=== PATIENT | female | born 1975 | race Caucasian/White ===

== ENCOUNTER → 2016-03-27 | Outpatient (REF) | payer MEDICARE, MEDICAID ==
[~2016-03-27] MED LIST: /ADVA50050; /LAMO10TA; ACET500C OR; ALBU17IN INH; AMBI5TAB OR; AMITIZA PO; ASPI81TA45 OR; ATIV0.5T OR; ATIV0.5T3 PO; BACL10TA2 OR; CARA1TAB2 PO; CLAR5CHW; CLON0.5T PO; COLA100C2 OR; COMBAER6 INH; CYCL10TA3 PO; CYMB60CA3 PO; DOXY150C PO; DULO20CA; EMLA2.5C EX; EMLA2.5C EXT; FLEXERIL; FLEXERIL PO; FLON0.05; HYDR-3716 PO; HYDR25TA8 OR; IMIT100T; IMIT6INJ IJ; LAC-12LO3 TOP; LIDO5DIS36 TD; LISI10TA4 OR; LORA10TA2 PO; LORA2TA PO; MAGN250T OR; MAXA10TA17 OR; MECL12.575 PO; MIRALEX PO; MIRAPEX; NICO14DI3; OMEP10CASR PO; OMEP20TA7 OR; PERC5TAB6 PO; PERC5TAB8 OR; PHEN 25 PO; PRED20TAB PO; PROM25TA PO; PROM50TA; PROVIGIL; REGL10TA6 PO; ROBA500T; SAVE50TA PO; SIMV10TA2 OR; STOOL SOFTNER PO; TIZA4TAB OR; TIZA4TAB3 PO; TOLNAFTATE; TRAM100T; TRAM50TA2; TRAM50TA2 OR; TRAM50TA2 PO; TRAZ100T4 PO; TRAZ50TA2 PO; TYLENOL #3; VALI5TAB; VARE1TA OR; VICO5TAB OR; VIT D 2000 PO; VITA-113 SL; VITACAP31 OR; XANA1TAB2 PO; clonidine PO; emla cream TOP; fentanyl patch TOP; vitamin d3 PO
== END ==
LOC: M LAB REF 09:37
PROVIDERS: ATTEND Physician Assistant
DX: N39.0 Urinary tract infection, site not specified (principal)

== ENCOUNTER → 2016-05-25 | Outpatient (CLI) | payer MEDICARE, MEDICAID ==
--- NOTE | 2016-06-09 00:39 | ECWPNPC ---
PATIENT NAME: ALBERTO HUNT : 1975 GENDER: FEMALE VISIT DATE: 05/25/2016 DISCHARGE DATE: 05/25/16 1547 VISIT LOCKED DATE TIME: PHYSICIAN: JOCELYN ROBISON RESOURCE: JOCELYN ROBISON HISTORY OF PRESENT ILLNESS HISTORY OF PRESENT ILLNESS: PAIN THE PATIENT DESCRIBES THE PAIN... FALL RISK SCREENING: SCREENING :NO FALLS IN THE PAST YEAR TODAY'S VISIT: NOTES: FIRST VIST BACK TO CLINIC SINCE 12/22. HAS HAD NO PRESCRIBED PAIN MEDS SINCE THEN. RATES PAIN LEVEL TODAY 4-5/10 FOR BODY AND 4 FOR HEAD. DESCRIBES PAIN CONSTANT, ACHING, TENDER. IS NOTING NUMBNESS. REPORTS SX OF DIZZINESS PERIOD OF CONFUSION, DIFFICLTY READING AND FOLLOWING DIRECTIONS, HEAD HAS "STARTED GOING NUMB". IS SEEING BRIGHT FLASHES OF LIGHT AND THESE CAN LAST AN EXTENDED PERIOD. IS HAVING INTERMITTANT VOMITING WITH NO GARAY SX OCCURS ON A NEAR DAILY BASIS. FEELS FULL ALL THE TIME. . GARAY CAN FOLLOW AND IS OCCIPITAL. IS HAVING EXPLOSIVE DIARRHEA. HAS CUT BACK ON AMITIZIA (DR REAGAN).IS NOT CURRENTLY SEEING NEUROLOGY. DID CONTACT DR BINU FERNANDES IN [place] WHO IS ORDERING A NEW BRAIN SCAN AND SHE IS WAITING FOR [facility] TO SCHEDULE.. CURRENT MEDICATIONS TAKING VITAMIN D (CHOLECALCIFEROL) 4000 TABLET 1 TAB ORALLY ONCE A DAY, NOTES: 01-04-161999 TAKING AMMONIUM LACTATE 12 CREAM APPLY TO THE AFFECTED AREA ON BOTH FEET TWICE DAILY , NOTES: 3 DAYS AGO TAKING EMLA 2.5-2.5 % CREAM DIRECTED EXTERNALLY APPLY Q 4 HRS TO PAINFUL AREAS OF HEAD, NOTES: FEW DAYS AGO TAKING EXCEDRIN TENSION HEADACHE 500-65 MG TABLET ORALLY , NOTES: 01-04-16 TAKING TRAZODONE HCL 100 MG TABLET 1 TABLET AT BEDTIME ORALLY ONCE A DAY TAKING AZELASTINE HCL 0.1 % SOLUTION SPRAY ONE SPRAY IN EACH NOSTRIL TWICE A DAY TAKING OMEPRAZOLE 40 MG CAPSULE DELAYED RELEASE 1 CAPSULE ORALLY ONCE A DAY TAKING XYZAL 5 MG TABLET 1 TABLET IN THE EVENING ORALLY ONCE A DAY TAKING AMITIZA 24 MCG CAPSULE TAKE ONE CAPSULE BY MOUTH TWICE A DAY WITH FOOD TAKING TOPIRAMATE 100 MG TABLET 1 TABLET ORALLY TWICE A DAY NOT-TAKING FENTANYL 25 MCG/HR PATCH 72 HOUR 1 PATCH TO SKIN TRANSDERMAL Q72 HOURS MDD=1 NOT-TAKING PERCOCET 5-325 MG TABLET 1 TABLET NEEDED ORALLY ONCE DAILY PRN PAIN MDD=1 NOT-TAKING ZOFRAN 8 MG TABLET 1 TABLET ORALLY Q 8 HRS PRN PAIN MDD=3 NOT-TAKING ASTEPRO 137 MCG/SPRAY SOLUTION 1 PUFF IN EACH NOSTRIL NASALLY TWICE A DAY, NOTES: 12-09-15 AM NOT-TAKING COMBIVENT RESPIMAT 20-100 MCG/ACT AEROSOL 1 PUFF INHALATION BID, NOTES: 12-08-15 NOT-TAKING NICOTROL 10 MG INHALER 1 PUFF NEEDED INHALATION 16 TIME(S) A DAY NEEDED, NOTES: NONE NOT-TAKING TOPAMAX 200 MG TABLET 1 TABLET ORALLY ONCE DAILY, NOTES: 12-09-15 PM MEDICATION LIST REVIEWED AND RECONCILED WITH THE PATIENT PAST MEDICAL HISTORY ?DIABETES MELLITUS DIAGNOSED 2002 DIET CONTROLLED ADULT HODGKIN'S LYMPHOMA 1995- TREATED WITH CHEMO. (DR. MARIA) - NO LONGER FOLLOWS WITH HIM FIBROMYALGIA - PAIN CLINIC HYPERLIPIDEMIA HISTORY OF PSYCHIATRIC DISORDER AND WAS TAKING MEDICATIONS PRESCRIBED BY DR. HYDE. HOWEVER STOPPED TAKING EVERYTHING AFTER SHE HAD UNEXPLAINED SYNCOPE. ANXIETY/DEPRESSION/PTSD - FOLLOWED BY BEHAVIORAL HEALTH FOLLOWING WITH THERAPIST - SHE WAS DISCHARGED FROM BEHAVIORAL HEALTH FOR CANCELLATION OF APPOINTMENTS. CT CHEST 04/2014 - LUNG NODULE - F/U CT 03/2015 - NODULE RESOLVED. CHRONIC CONSTIPATION - FOLLWED BY DR. BRIDGES ON AMITIZA TOBACCO ABUSE ALLERGIC RHINNITIS ?COPD/ASTHMA - METHALCHOLINE CHALLENGE PENDING PONTINE HEMANGIOMA PER MRI BRAIN - REFERRED TO NEUROSURGEON (DR. MARAVILLA) GERD MIGRAINES - DR. ROBERTS ALLERGIES IODINE: ANAPHYLAXIS: ALLERGY SULFA (FOR ALLERGY USE ONLY): DIARRHEA,VOMITTING,HIVES: ALLERGY BUSPAR: MEMORY LOSS: ALLERGY LITHIUM CARBONATE: NAUSEA/VOMITING, DEHYRATION: ALLERGY MEDROXYPROGESTERONE ACETATE: HIVES: ALLERGY IBUPROFEN: NAUSEA/VOMITING,DIARRHEA: ALLERGY LYRICA: SWELLING OF FEET AND HANDS: ALLERGY FLEXERIL: INCREASED HEART RATE: SIDE EFFECTS BEE STINGS: ANAPHYLAXIS: ALLERGY LATEX (FOR ALLERGY USE ONLY): RASH: ALLERGY PEANUTS: ANAPHYLAXIS: ALLERGY NO BLOOD THINNERS: CONTRAINDICATION CHANTIX: AUDITORY HALLUCINATIONS: SIDE EFFECTS EXCEDRIN MIGRAINE: POSSIBLE BLEEDING: SIDE EFFECTS REMERON: ALLERGY SOCIAL HISTORY GENERAL: PAIN CLINIC PFS, CLERGY, PUBLIC HEALTH REFERRALS CLERGY REFERRAL NEEDED?NO WAS THE PROVIDER NOTIFIED OF ANY PERTINENT INFO?NO PFS REFERRAL NEEDED?NO PUBLIC HEALTH REFERRAL NEEDED?NO PATIENT: ____. REVIEW OF SYSTEMS CONSTITUTIONAL: ANY CHANGE IN YOUR MEDICAL CONDITION? NO . CHILLS NO . FEVER NO . INFECTION: DO YOU HAVE NEW INFECTIONS? NO . DO YOU HAVE HISTORY OF MRSA? NO . MUSCULOSKELETAL: ANY NEW PATTERNS OF PAIN OR NUMBNESS? NO . GASTROENTEROLOGY: ANY NEW CHANGE IN BOWEL CONTROL? NO . GENITOURINARY: ANY NEW CHANGE IN BLADDER CONTROL? NO . IS THERE A CHANCE YOU COULD BE ? NO . HEMATOLOGY/LYMPH: DO YOU TAKE ANY BLOOD THINNERS? (FOR EXAMPLE- COUMADIN, PLAVIX, AGGRENOX, PLATEL, PRADAXA, OR XARELTO) NO . WHEN WAS YOUR LAST DOSE? DATE: TIME: . NEUROLOGY: HAVE YOU FALLEN IN THE PAST 6 MONTHS? NO . ANY NEW EXTREMITY NUMBNESS OR WEAKNESS? NO . CARDIOLOGY: DO YOU HAVE A PACEMAKER OR DEFIBRILLATOR? NO . RESPIRATORY: HAVE YOU BEEN SICK IN THE PAST WEEK? NO . FEVER NO . FLU LIKE SYMPTOMS? NO . COUGH NO . INTEGUMENTARY: DO YOU HAVE ANY RASHES OR OPEN SORES? NO . ALLERGIC/IMMUNO: ARE YOU ALLERGIC TO SHELLFISH OR IV DYE? NO . ANY NEW ALLERGIES? NO . PSYCHIATRIC: DO YOU HAVE THOUGHTS OF HURTING YOURSELF OR SOMEONE ELSE? NO . ARE YOU ABUSED, NEGLECTED, OR IN AN UNSAFE ENVIRONMENT? NO . ENDOCRINOLOGY: ARE YOU DIABETIC? NO . OTHER: DO YOU NEED ANY PRESCRIPTIONS? NO . IF YES, PLEASE LIST: ____ . ANY NEW PROBLEMS WITH YOUR MEDICATIONS? NO . WHEN DID YOU LAST EAT? ____ . WHEN DID YOU LAST DRINK? ____ . WHAT DID YOU LAST DRINK? ____ . NAME OF PERSON DRIVING YOU HOME? ____ . DO YOU HAVE ANY OTHER QUESTIONS OR CONCERNS NO . REVIEWED BY: PROVIDER: JOCELYN ADAME . VITAL SIGNS WT 104.2 LBS, HT 60 IN, BMI 20.35 INDEX, BP 103/49 MM HG, HR 64 /MIN, RR 16 /MIN, TEMP 98.3 F, OXYGEN SAT % 100, NA INITIALS AW 1448, REVIEWED BY: KG. EXAMINATION GENERAL EXAMINATION: GENERAL APPEARANCE:THIN, PALE. PSYCHALERT , ORIENTED X 3 , APPROPRIATE MOOD AND AFFECT . LUNGS:CLEAR TO AUSCULTATION BILATERALLY. HEART:HEART RATE REGULAR. MUSCULOSKELETAL:MUSCLE STRENGTH TESTING 5/5 BILATERAL, TRIGGER POINTS:, ELICITED WITH PALPATION OVER CERVICAL SPINOUS PROCESSES AND ACROSS THE TRAPEZIUS MUSCLES BILATERALLY. RESTRICTION OF ROM IS NOTED. POINT TENDERNESS OVER BILATERAL OCCIPITAL NTCH REGION. ASSESSMENTS MYALGIA - M79.1 (PRIMARY) MIGRAINE WITH AURA AND WITHOUT STATUS MIGRAINOSUS, NOT INTRACTABLE - G43.109 TREATMENT MYALGIA START PROMETHAZINE HCL TABLET, 25 MG, 1 TABLET NEEDED, ORALLY, THREE TIMES DAILY, 30 DAY(S), 60, REFILLS 1 START OXYCODONE HCL TABLET, 5 MG, 1 TABLET, ORALLY, Q 8 HRS PRN PAIN MDD=3, 30 DAY(S), 60, REFILLS 0 REFILL TRAZODONE HCL TABLET, 150 MG, 1 TABLET AT BEDTIME, ORALLY, ONCE A DAY, 30 DAY(S), 30, REFILLS 5 [facility] MRI BRAIN W/O FOLL BY WITH [id number],SUSAN M 05/25/2016 3:31:17 PM > INTRERCRAN BLEED/INCREASED HEADACHES [facility] MRA BRAIN WITH [id number] NOTES: FALLS CARE PLAN: 1. RECOMMEND REMOVING ALL THROW RUGS. 2. RECOMMEND NIGHT LIGHTS 3. RECOMMEND WEARING RUBBER SOLED SHOES AND TO NOT GO BAREFOOT. 4.. ADVISED TO CHANGE POSITION SLOWLY FROM SUPINE TO STANDING TO AVOID DIZZINESS. 6. KEEP PORTABLE PHONE READILY AVAILABLE, # 660 TOBACCO USE SCREENING/INTERVENTION: PATIENT CURRENTLY USED TOBACCO. WAS OFFERED SMOKING CESSATION FOR GUIDANCE IN QUITTING THROUGH THE [facility] QUITS PROGRAM AND THE [facility] CESSATION PROGRAM. WEIGHT LESS THAT BMI 20 - REPORTS VERY POOR APPETITE AND SIGNIFICANT ANXIETY. WILL BE DISCUSSING THIS WITH HER PCP AND BEHAVIORAL HEALTH PROVIDER. CLINICAL NOTES: ISTOP REGISTRY REVIEWED AND DEMNOSTRATES COMPLLIANCE. BRINGS IN MEDICATIONS WHICH IS APPROPRIATE FOR WHAT WAS DISPENSED. RECENT URINE TOXICOLOGY REVIEWED. NO UNAUTHORIZED MEDICATIONS. NO ILLICIT SUBSTANCES AND PRESCRIBED MEDICATIONS WERE PRESENT. PROCEDURE CODES FA211 ESTABILISHED PATIENT [facility] FACILITY CHARGE G8783 BP SCR PRFRM RCMDD DEFIND SCR INTVL G8418 BMI < 22 CALCUATE W/FOLLOWUP G8730 PAIN ASSESS POS TOOL F/U PLAN DOC 3016F PT SCRND [place] USE 1123F ACP DISCUSS/DSCN MKR DOCD 1036F TOBACCO NON-USER 0518F FALL PLAN OF CARE DOCD G8427 DOC MEDS VERIFIED W/[place] RE 3288F FALL RISK ASSESSMENT DOCD DISPOSITION & COMMUNICATION FOLLOW UP 1 MONTH (REASON: CHECK AUTH FOR MRI/MRA OF BRAIN WITH AND WITHOUT CONTRAST. NEED MANJEET/GET RESULTS OF SLEEP STUDY DONE ) ELECTRONICALLY SIGNED BY NAMITA PEÑA ON 06/08/2016 AT 08:43 AM EDT DISCLAIMER : THIS IS A VISIT SUMMARY EXTRACTED FROM THE [email or web address] CHART. IT IS NOT A COPY OF THE [email or web address] PROGRESS NOTE. MTDD
== END ==
LOC: M PAIN 15:00
PROVIDERS: ATTEND Nurse Practitioner Family
DX: G89.29 Other chronic pain (principal); G43.109 Migraine with aura, not intractable, without status migrainosus; M79.1 Myalgia; R19.7 Diarrhea, unspecified; E78.5 Hyperlipidemia, unspecified; F41.9 Anxiety disorder, unspecified; F32.9 Major depressive disorder, single episode, unspecified; F43.10 Post-traumatic stress disorder, unspecified; K59.09 Other constipation; F17.200 Nicotine dependence, unspecified, uncomplicated; J30.9 Allergic rhinitis, unspecified; K21.9 Gastro-esophageal reflux disease without esophagitis; D18.00 Hemangioma unspecified site; Z88.8 Allergy status to other drugs, medicaments and biological substances; Z88.2 Allergy status to sulfonamides; Z88.5 Allergy status to narcotic agent; Z88.6 Allergy status to analgesic agent; Z91.030 Bee allergy status; Z91.040 Latex allergy status; Z91.010 Allergy to peanuts; Z79.899 Other long term (current) drug therapy

== ENCOUNTER → 2016-06-29 | Outpatient (CLI) | payer MEDICARE ==
[~2016-06-29] MED LIST changes: +DIAZ2TAB; +LEVOTAB10; -LIDO5DIS36 TD; +LIDO5DIS41 TD; +PERC5TAB12 PO; -PERC5TAB6 PO; +TRAZ-136 PO; -TRAZ100T4 PO; +ZOFR4TAB3 PO
--- NOTE | 2016-06-29 12:09 | REP ---
MRA BRAIN WITHOUT CONTRAST: HISTORY: Occipital neuralgia. 3D [id number] MR angiography was performed at the level of the [place]. There is no aneurysm, arteriovenous malformation or atherosclerotic lesion. The major intracranial vessels are patent. The left vertebral artery is dominant. A round 2 cm focus of increased signal intensity is present in the right abner. IMPRESSION: There is no aneurysm or arteriovenous malformation. There is a round focus of increased signal intensity in the right abner. Please refer to MR brain performed this same date. Signed by Bal Dorsey MD 06/29/2016 12:12 P
--- NOTE | 2016-06-29 12:31 | REP ---
MR BRAIN WITHOUT AND WITH CONTRAST: HISTORY: Myalgias. CONTRAST: ProHance 9.4 mL. COMPARISON: 05/01/15 Several punctate areas of increased signal intensity on T2-weighted images are present in the subcortical white matter. There is a round focus of mixed increased and decreased signal intensity on T1- and T2-weighted images present in the right abner. This measures 2 cm in transverse x 2 cm in AP x 2.4 cephalocaudal dimensions and is increased in size compared to the previous study. There is no definite enhancement with contrast. This is consistent with a cavernous hemangioma. There is no surrounding edema. There is mass effect with partial effacement of the prepontine cistern and fourth ventricle. There is no midline shift. There is no hydrocephalus or extracerebral collection. The visualized sinuses are clear. IMPRESSION: There is a 2 cm cavernous hemangioma in the right abner that is increased in size compared to the previous study. There is no midline shift. Results were discussed with Carol Chamroro at 12:20 p.m. this date. Signed by Bal Dorsey MD 06/29/2016 12:34 P
== END ==
LOC: M RAD 09:09
PROVIDERS: ATTEND Nurse Practitioner Family
DX: M54.81 Occipital neuralgia (principal); D18.02 Hemangioma of intracranial structures
CPT/HCPCS: 70544; 70553; A9576; G0463

== ENCOUNTER → 2016-06-29 | Outpatient (CLI) | payer MEDICARE, MEDICAID ==
[~2016-06-29] MED LIST changes: -DIAZ2TAB; -LEVOTAB10; +LIDO5DIS36 TD; -LIDO5DIS41 TD; -PERC5TAB12 PO; +PERC5TAB6 PO; -TRAZ-136 PO; +TRAZ100T4 PO; -ZOFR4TAB3 PO
--- NOTE | 2016-07-23 00:30 | ECWPNPC ---
PATIENT NAME: ALBERTO HUNT : 1975 GENDER: FEMALE VISIT DATE: 06/29/2016 DISCHARGE DATE: 06/29/16 1303 VISIT LOCKED DATE TIME: PHYSICIAN: JOCELYN ROBISON RESOURCE: JOCELYN ROBISON REASON FOR APPOINTMENT 1. WHOLE BODY HISTORY OF PRESENT ILLNESS HISTORY OF PRESENT ILLNESS: PAIN THE PATIENT DESCRIBES THE PAIN... FALL RISK SCREENING: SCREENING :NO FALLS IN THE PAST YEAR TODAY'S VISIT: NOTES: RATES PAIN TODAY 4.5/10 IN HEAD AREA, AND 4/10 IN BODY. PERCOCET HAD NO EFFECT ON THE PAIN. HAD NO SIDE EFFECTS. LOTS OF SPASMS. HAS HAD SUDDEN FALLS - NO DIZZINESS, NO LIGHTHEADEDNESS, DENIES LOC. TODAY DID SKIN KNEES. NO TINITUS. IS HAVING SENSORY CHANGES IN LEFT FINGER TIPS BUT NOT THUMB.. CURRENT MEDICATIONS TAKING VITAMIN D (CHOLECALCIFEROL) 4000 TABLET 1 TAB ORALLY ONCE A DAY, NOTES: 01-04-161999 TAKING EMLA 2.5-2.5 % CREAM DIRECTED EXTERNALLY APPLY Q 4 HRS TO PAINFUL AREAS OF HEAD, NOTES: FEW DAYS AGO TAKING EXCEDRIN TENSION HEADACHE 500-65 MG TABLET ORALLY , NOTES: 01-04-16 TAKING OMEPRAZOLE 40 MG CAPSULE DELAYED RELEASE 1 CAPSULE ORALLY ONCE A DAY TAKING PROMETHAZINE HCL 25 MG TABLET 1 TABLET NEEDED ORALLY THREE TIMES DAILY TAKING TRAZODONE HCL 150 MG TABLET 1 TABLET AT BEDTIME ORALLY ONCE A DAY TAKING B COMPLEX - TABLET DIRECTED ORALLY DAILY NOT-TAKING AMMONIUM LACTATE 12 CREAM APPLY TO THE AFFECTED AREA ON BOTH FEET TWICE DAILY , NOTES: 3 DAYS AGO NOT-TAKING AZELASTINE HCL 0.1 % SOLUTION SPRAY ONE SPRAY IN EACH NOSTRIL TWICE A DAY NOT-TAKING XYZAL 5 MG TABLET 1 TABLET IN THE EVENING ORALLY ONCE A DAY NOT-TAKING AMITIZA 24 MCG CAPSULE TAKE ONE CAPSULE BY MOUTH TWICE A DAY WITH FOOD NOT-TAKING TOPIRAMATE 100 MG TABLET 1 TABLET ORALLY TWICE A DAY NOT-TAKING OXYCODONE HCL 5 MG TABLET 1 TABLET ORALLY Q 8 HRS PRN PAIN MDD=3 NOT-TAKING FENTANYL 25 MCG/HR PATCH 72 HOUR 1 PATCH TO SKIN TRANSDERMAL Q72 HOURS MDD=1 NOT-TAKING PERCOCET 5-325 MG TABLET 1 TABLET NEEDED ORALLY ONCE DAILY PRN PAIN MDD=1 NOT-TAKING ZOFRAN 8 MG TABLET 1 TABLET ORALLY Q 8 HRS PRN PAIN MDD=3 NOT-TAKING ASTEPRO 137 MCG/SPRAY SOLUTION 1 PUFF IN EACH NOSTRIL NASALLY TWICE A DAY, NOTES: 12-09-15 AM NOT-TAKING COMBIVENT RESPIMAT 20-100 MCG/ACT AEROSOL 1 PUFF INHALATION BID, NOTES: 12-08-15 NOT-TAKING NICOTROL 10 MG INHALER 1 PUFF NEEDED INHALATION 16 TIME(S) A DAY NEEDED, NOTES: NONE NOT-TAKING TOPAMAX 200 MG TABLET 1 TABLET ORALLY ONCE DAILY, NOTES: 12-09-15 PM MEDICATION LIST REVIEWED AND RECONCILED WITH THE PATIENT PAST MEDICAL HISTORY ?DIABETES MELLITUS DIAGNOSED 2002 DIET CONTROLLED ADULT HODGKIN'S LYMPHOMA 1995- TREATED WITH CHEMO. (DR. MARIA) - NO LONGER FOLLOWS WITH HIM FIBROMYALGIA - PAIN CLINIC HYPERLIPIDEMIA HISTORY OF PSYCHIATRIC DISORDER AND WAS TAKING MEDICATIONS PRESCRIBED BY DR. HYDE. HOWEVER STOPPED TAKING EVERYTHING AFTER SHE HAD UNEXPLAINED SYNCOPE. ANXIETY/DEPRESSION/PTSD - FOLLOWED BY BEHAVIORAL HEALTH FOLLOWING WITH THERAPIST - SHE WAS DISCHARGED FROM BEHAVIORAL HEALTH FOR CANCELLATION OF APPOINTMENTS. CT CHEST 04/2014 - LUNG NODULE - F/U CT 03/2015 - NODULE RESOLVED. CHRONIC CONSTIPATION - FOLLWED BY DR. BRIDGES ON AMITIZA TOBACCO ABUSE ALLERGIC RHINNITIS ?COPD/ASTHMA - METHALCHOLINE CHALLENGE PENDING PONTINE HEMANGIOMA PER MRI BRAIN - REFERRED TO NEUROSURGEON (DR. MARAVILLA) GERD MIGRAINES - DR. ROBERTS ALLERGIES IODINE: ANAPHYLAXIS: ALLERGY SULFA (FOR ALLERGY USE ONLY): DIARRHEA,VOMITTING,HIVES: ALLERGY BUSPAR: MEMORY LOSS: ALLERGY LITHIUM CARBONATE: NAUSEA/VOMITING, DEHYRATION: ALLERGY MEDROXYPROGESTERONE ACETATE: HIVES: ALLERGY IBUPROFEN: NAUSEA/VOMITING,DIARRHEA: ALLERGY LYRICA: SWELLING OF FEET AND HANDS: ALLERGY FLEXERIL: INCREASED HEART RATE: SIDE EFFECTS BEE STINGS: ANAPHYLAXIS: ALLERGY LATEX (FOR ALLERGY USE ONLY): RASH: ALLERGY PEANUTS: ANAPHYLAXIS: ALLERGY NO BLOOD THINNERS: CONTRAINDICATION CHANTIX: AUDITORY HALLUCINATIONS: SIDE EFFECTS EXCEDRIN MIGRAINE: POSSIBLE BLEEDING: SIDE EFFECTS REMERON: ALLERGY REVIEW OF SYSTEMS CONSTITUTIONAL: ANY CHANGE IN YOUR MEDICAL CONDITION? NO . CHILLS NO . FEVER NO . INFECTION: DO YOU HAVE NEW INFECTIONS? NO . DO YOU HAVE HISTORY OF MRSA? NO . MUSCULOSKELETAL: ANY NEW PATTERNS OF PAIN OR NUMBNESS? NO . GASTROENTEROLOGY: ANY NEW CHANGE IN BOWEL CONTROL? NO . GENITOURINARY: ANY NEW CHANGE IN BLADDER CONTROL? NO . IS THERE A CHANCE YOU COULD BE ? NO . HEMATOLOGY/LYMPH: DO YOU TAKE ANY BLOOD THINNERS? (FOR EXAMPLE- COUMADIN, PLAVIX, AGGRENOX, PLATEL, PRADAXA, OR XARELTO) NO . WHEN WAS YOUR LAST DOSE? DATE: TIME: . NEUROLOGY: HAVE YOU FALLEN IN THE PAST 6 MONTHS? YES PT REPORTS SHE FELL THIS MORNING IN THE PARKING LOT. PT REPORTS SHE DID NOT TRIP, DID NOT LOSE HER BALANCE, DENIES LIGHT HEADEDNESS OR DIZZINESS, CAN'T REALLY EXPLAIN WHAT HAPPENED. BOTH KINEES ARE SCRAPED UP, BUT DENIES OTHER INJURY.&NBSP;. ANY NEW EXTREMITY NUMBNESS OR WEAKNESS? &NBSP;&NBSP; NO&NBSP;. CARDIOLOGY: DO YOU HAVE A PACEMAKER OR DEFIBRILLATOR? NO . RESPIRATORY: HAVE YOU BEEN SICK IN THE PAST WEEK? YES PT REPORTS NASAL CONGESTION, COUGH, POST NASAL DRIP, DENIES FEVER OR WHEEZING. . FEVER NO . FLU LIKE SYMPTOMS? NO . COUGH YES . INTEGUMENTARY: DO YOU HAVE ANY RASHES OR OPEN SORES? NO . ALLERGIC/IMMUNO: ARE YOU ALLERGIC TO SHELLFISH OR IV DYE? YES . ANY NEW ALLERGIES? NO . PSYCHIATRIC: DO YOU HAVE THOUGHTS OF HURTING YOURSELF OR SOMEONE ELSE? NO . ARE YOU ABUSED, NEGLECTED, OR IN AN UNSAFE ENVIRONMENT? NO . ENDOCRINOLOGY: ARE YOU DIABETIC? NO . OTHER: DO YOU NEED ANY PRESCRIPTIONS? NO . IF YES, PLEASE LIST: ____ . ANY NEW PROBLEMS WITH YOUR MEDICATIONS? NO . WHEN DID YOU LAST EAT? ____ . WHEN DID YOU LAST DRINK? ____ . WHAT DID YOU LAST DRINK? ____ . NAME OF PERSON DRIVING YOU HOME? ____ . DO YOU HAVE ANY OTHER QUESTIONS OR CONCERNS YES PT FEELS THAT OXYCODONE IS INEFFECTIVE AND WOULD LIKE TO DISCUSS OTHER MEDICATIONS. . REVIEWED BY: PROVIDER: JOCELYN ADAME . VITAL SIGNS WT 110.2 LBS, HT 60 IN, BMI 21.52 INDEX, BP 107/64 MM HG, HR 92 /MIN, RR 16 /MIN, TEMP 98.3 F, OXYGEN SAT % 99%, SAFE IN ENV? (Y/N) YES, NA INITIALS TL 1156, REVIEWED BY: SUZANNE. EXAMINATION GENERAL EXAMINATION: PSYCHALERT , ORIENTED X 3 , APPROPRIATE MOOD AND AFFECT , , GOOD EYE CONTACT. LUNGS:CLEAR TO AUSCULTATION BILATERALLY, NO WHEEZES .. HEART:HEART RATE REGULAR. MUSCULOSKELETAL:MUSCLE STRENGTH TESTING 5/5 RIGHT UPPER AND LOWER EXTREMITY. 5-/5 LEFT LOWER EXTREMITY, 4/5 LEFT UPPER EXTREMITY BOTH DISTALLY AND PROXIMALLY. . NEUROLOGIC EXAM:SENSORY AND TEMPERATURE SENSATION DECREASE ON LEFT HEAD, NECK UPPER EXTREMITIES.DTR'S TRACE RUE, 2+ ZONIA, 1+ BLE. FLATTENING OF THE LEFT FACIAL FEATURES NOTED. . DIAGNOSTIC TESTS REVIEWEDMRI OF BRAIN WITH AND WITHOUT CONTRAST COMPLETED ON 06/29/16. DR MARTINS DID CONTACT THIS PROVIDER REGARDING THE RESULTS. THIS DID DEMONSTRATE A 2 CM CAVERNOUS HEMANGIOMA IN THE RIGHT PURVI THAT IS INCREASED IN SIZE COMPARED TO HER PREVIOUS STUDY FROM 05/01/15. THERE IS MASS EFFECT WITH PARTIAL EFFACEMENT OF THE PREPONTINE CISTERN AND FOURTH VENTRICLE. MRA OF BRAIN WITHOUT CONTRAST COMPLETED ON 06/29/16 DEMONSTRATES NO ANEUYSM OR ARTERIOVENOIS MALFORMATION. THERE IS A 2 CM ROUND FOCUS OF INCREASED SIGNAL INTENSITY IN THE RIGHT PURVI. THIS WAS REVIEWED WITH THE PATIENT. 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 TAKE DISC OF MRI TO HIM . CLINICAL NOTES: ISTOP REGISTRY REVIEWED AND DEMNOSTRATES COMPLLIANCE. BRINGS IN MEDICATIONS WHICH IS APPROPRIATE FOR WHAT WAS DISPENSED. RECENT URINE TOXICOLOGY REVIEWED. NO UNAUTHORIZED MEDICATIONS. NO ILLICIT SUBSTANCES AND PRESCRIBED MEDICATIONS WERE PRESENT. OTHERS NOTES: UPDATE NARCOTIC AGREEMENT. CALL DR SCHMID - GET MRI/MRA DISC AND SEE HIM. HAVE HIM SUGGEST A NEUROLOGIST. COMPLETE EEG. PROCEDURE CODES FA211 ESTABILISHED PATIENT [facility] FACILITY CHARGE [id number] PAIN ASSESS POS TOOL F/U PLAN DOC G8427 DOC MEDS VERIFIED W/PT OR RE DISPOSITION & COMMUNICATION FOLLOW UP 1 MONTH ELECTRONICALLY SIGNED BY NAMITA PEÑA ON 07/22/2016 AT 07:33 PM EDT DISCLAIMER : THIS IS A VISIT SUMMARY EXTRACTED FROM THE [employer] CHART. IT IS NOT A COPY OF THE [employer] PROGRESS NOTE. YE
== END ==
LOC: M PAIN 11:00
PROVIDERS: ATTEND Nurse Practitioner Family
DX: M54.81 Occipital neuralgia (principal); G43.109 Migraine with aura, not intractable, without status migrainosus; D18.02 Hemangioma of intracranial structures; E11.9 Type 2 diabetes mellitus without complications; M79.7 Fibromyalgia; F32.9 Major depressive disorder, single episode, unspecified; F41.9 Anxiety disorder, unspecified; F43.10 Post-traumatic stress disorder, unspecified; Z72.0 Tobacco use; J30.9 Allergic rhinitis, unspecified; K21.9 Gastro-esophageal reflux disease without esophagitis; G43.909 Migraine, unspecified, not intractable, without status migrainosus; E78.5 Hyperlipidemia, unspecified; Z88.8 Allergy status to other drugs, medicaments and biological substances; Z88.2 Allergy status to sulfonamides; Z88.6 Allergy status to analgesic agent; Z91.030 Bee allergy status; Z91.040 Latex allergy status; Z91.010 Allergy to peanuts; Z79.899 Other long term (current) drug therapy

== ENCOUNTER → 2016-07-25 | Outpatient (CLI) | payer MEDICARE, MEDICAID ==
[~2016-07-25] MED LIST changes: +DIAZ2TAB; +LEVOTAB10; -LIDO5DIS36 TD; +LIDO5DIS41 TD; +PERC5TAB12 PO; -PERC5TAB6 PO; +TRAZ-136 PO; -TRAZ100T4 PO; +ZOFR4TAB3 PO
--- NOTE | 2016-08-11 01:25 | ECWPNPC ---
PATIENT NAME: ALBERTO HUNT : 1975 GENDER: FEMALE VISIT DATE: 07/25/2016 DISCHARGE DATE: 07/25/16 0955 VISIT LOCKED DATE TIME: PHYSICIAN: JOCELYN ROBISON RESOURCE: JOCELYN ROBISON REASON FOR APPOINTMENT 1. BODY HISTORY OF PRESENT ILLNESS HISTORY OF PRESENT ILLNESS: PAIN THE PATIENT DESCRIBES THE PAIN... FALL RISK SCREENING: SCREENING :NO FALLS IN THE PAST YEAR TODAY'S VISIT: NOTES: RATES PAIN TODAY 4/10. IS STILL HAVING SLEEPING SENSATION OVER THE FACE LEFT SIDE. HAS LOSS OF SENSATION IN FINGERS AND DID BURN FINGERS. THERE IS A WORSENING OF WEAKNESS IN LEFT ARM. HAS NOT YET SEEN NEURO TEAM IN [place]. HAS NOTED NO EFFECT WITH USE OF VALIUM. HAS BEEN USED EXCEDRIN TENSION WHICH HAS NELPED BUT EXCEDRINE MIGRAINE WORKED BETTER. IS VERY CONCERNED REGARDING ASA USE.. CURRENT MEDICATIONS TAKING EMLA 2.5-2.5 % CREAM DIRECTED EXTERNALLY APPLY Q 4 HRS TO PAINFUL AREAS OF HEAD TAKING EXCEDRIN TENSION HEADACHE 500-65 MG TABLET ORALLY TAKING PROMETHAZINE HCL 25 MG TABLET 1 TABLET NEEDED ORALLY THREE TIMES DAILY TAKING TRAZODONE HCL 150 MG TABLET 1 TABLET AT BEDTIME ORALLY ONCE A DAY TAKING VALIUM 2 MG TABLET 1 TABLET NEEDED ORALLY Q 6-8 HRS PRN SEVERE SPASM, NOTES: NOT WORKING NOT-TAKING VITAMIN D (CHOLECALCIFEROL) 4000 TABLET 1 TAB ORALLY ONCE A DAY NOT-TAKING OMEPRAZOLE 40 MG CAPSULE DELAYED RELEASE 1 CAPSULE ORALLY ONCE A DAY NOT-TAKING B COMPLEX - TABLET DIRECTED ORALLY DAILY NOT-TAKING AMMONIUM LACTATE 12 CREAM APPLY TO THE AFFECTED AREA ON BOTH FEET TWICE DAILY , NOTES: 3 DAYS AGO NOT-TAKING AZELASTINE HCL 0.1 % SOLUTION SPRAY ONE SPRAY IN EACH NOSTRIL TWICE A DAY NOT-TAKING XYZAL 5 MG TABLET 1 TABLET IN THE EVENING ORALLY ONCE A DAY NOT-TAKING AMITIZA 24 MCG CAPSULE TAKE ONE CAPSULE BY MOUTH TWICE A DAY WITH FOOD NOT-TAKING TOPIRAMATE 100 MG TABLET 1 TABLET ORALLY TWICE A DAY NOT-TAKING OXYCODONE HCL 5 MG TABLET 1 TABLET ORALLY Q 8 HRS PRN PAIN MDD=3 NOT-TAKING FENTANYL 25 MCG/HR PATCH 72 HOUR 1 PATCH TO SKIN TRANSDERMAL Q72 HOURS MDD=1 NOT-TAKING PERCOCET 5-325 MG TABLET 1 TABLET NEEDED ORALLY ONCE DAILY PRN PAIN MDD=1 NOT-TAKING ZOFRAN 8 MG TABLET 1 TABLET ORALLY Q 8 HRS PRN PAIN MDD=3 NOT-TAKING ASTEPRO 137 MCG/SPRAY SOLUTION 1 PUFF IN EACH NOSTRIL NASALLY TWICE A DAY, NOTES: 12-09-15 AM NOT-TAKING COMBIVENT RESPIMAT 20-100 MCG/ACT AEROSOL 1 PUFF INHALATION BID, NOTES: 12-08-15 NOT-TAKING NICOTROL 10 MG INHALER 1 PUFF NEEDED INHALATION 16 TIME(S) A DAY NEEDED, NOTES: NONE NOT-TAKING TOPAMAX 200 MG TABLET 1 TABLET ORALLY ONCE DAILY, NOTES: 12-09-15 PM MEDICATION LIST REVIEWED AND RECONCILED WITH THE PATIENT PAST MEDICAL HISTORY ?DIABETES MELLITUS DIAGNOSED 2002 DIET CONTROLLED ADULT HODGKIN'S LYMPHOMA 1995- TREATED WITH CHEMO. (DR. MARIA) - NO LONGER FOLLOWS WITH HIM FIBROMYALGIA - PAIN CLINIC HYPERLIPIDEMIA HISTORY OF PSYCHIATRIC DISORDER AND WAS TAKING MEDICATIONS PRESCRIBED BY DR. HYDE. HOWEVER STOPPED TAKING EVERYTHING AFTER SHE HAD UNEXPLAINED SYNCOPE. ANXIETY/DEPRESSION/PTSD - FOLLOWED BY BEHAVIORAL HEALTH FOLLOWING WITH THERAPIST - SHE WAS DISCHARGED FROM BEHAVIORAL HEALTH FOR CANCELLATION OF APPOINTMENTS. CT CHEST 04/2014 - LUNG NODULE - F/U CT 03/2015 - NODULE RESOLVED. CHRONIC CONSTIPATION - FOLLWED BY DR. BRIDGES ON AMITIZA TOBACCO ABUSE ALLERGIC RHINNITIS ?COPD/ASTHMA - METHALCHOLINE CHALLENGE PENDING PONTINE HEMANGIOMA PER MRI BRAIN - REFERRED TO NEUROSURGEON (DR. MARAVILLA) GERD MIGRAINES - DR. ROBERTS ALLERGIES IODINE: ANAPHYLAXIS: ALLERGY SULFA (FOR ALLERGY USE ONLY): DIARRHEA,VOMITTING,HIVES: ALLERGY BUSPAR: MEMORY LOSS: ALLERGY LITHIUM CARBONATE: NAUSEA/VOMITING, DEHYRATION: ALLERGY MEDROXYPROGESTERONE ACETATE: HIVES: ALLERGY IBUPROFEN: NAUSEA/VOMITING,DIARRHEA: ALLERGY LYRICA: SWELLING OF FEET AND HANDS: ALLERGY FLEXERIL: INCREASED HEART RATE: SIDE EFFECTS BEE STINGS: ANAPHYLAXIS: ALLERGY LATEX (FOR ALLERGY USE ONLY): RASH: ALLERGY PEANUTS: ANAPHYLAXIS: ALLERGY NO BLOOD THINNERS: CONTRAINDICATION CHANTIX: AUDITORY HALLUCINATIONS: SIDE EFFECTS EXCEDRIN MIGRAINE: POSSIBLE BLEEDING: SIDE EFFECTS REMERON: ALLERGY REVIEW OF SYSTEMS REVIEWED BY: PROVIDER: JOCELYN ADAME . CONSTITUTIONAL: ANY CHANGE IN YOUR MEDICAL CONDITION? NO . CHILLS NO . FEVER NO . INFECTION: DO YOU HAVE NEW INFECTIONS? NO . DO YOU HAVE HISTORY OF MRSA? NO . MUSCULOSKELETAL: ANY NEW PATTERNS OF PAIN OR NUMBNESS? YES, WEAKNESS WORSENING . GASTROENTEROLOGY: ANY NEW CHANGE IN BOWEL CONTROL? NO . GENITOURINARY: ANY NEW CHANGE IN BLADDER CONTROL? NO . IS THERE A CHANCE YOU COULD BE ? NO . HEMATOLOGY/LYMPH: DO YOU TAKE ANY BLOOD THINNERS? (FOR EXAMPLE- COUMADIN, PLAVIX, AGGRENOX, PLATEL, PRADAXA, OR XARELTO) NO . WHEN WAS YOUR LAST DOSE? DATE: TIME: . NEUROLOGY: HAVE YOU FALLEN IN THE PAST 6 MONTHS? YES . ANY NEW EXTREMITY NUMBNESS OR WEAKNESS? NO . CARDIOLOGY: DO YOU HAVE A PACEMAKER OR DEFIBRILLATOR? NO . RESPIRATORY: HAVE YOU BEEN SICK IN THE PAST WEEK? YES . FEVER NO . FLU LIKE SYMPTOMS? NO . COUGH NO . INTEGUMENTARY: DO YOU HAVE ANY RASHES OR OPEN SORES? NO . ALLERGIC/IMMUNO: ARE YOU ALLERGIC TO SHELLFISH OR IV DYE? YES . ANY NEW ALLERGIES? NO . PSYCHIATRIC: DO YOU HAVE THOUGHTS OF HURTING YOURSELF OR SOMEONE ELSE? NO . ARE YOU ABUSED, NEGLECTED, OR IN AN UNSAFE ENVIRONMENT? NO . ENDOCRINOLOGY: ARE YOU DIABETIC? NO . OTHER: DO YOU NEED ANY PRESCRIPTIONS? NEED TO DISCUSS WITH YOANDY . IF YES, PLEASE LIST: ____ . ANY NEW PROBLEMS WITH YOUR MEDICATIONS? WILL DISCUSS WITH YOANDY . WHEN DID YOU LAST EAT? ____ . WHEN DID YOU LAST DRINK? ____ . WHAT DID YOU LAST DRINK? ____ . NAME OF PERSON DRIVING YOU HOME? ____ . DO YOU HAVE ANY OTHER QUESTIONS OR CONCERNS NO . VITAL SIGNS WT 113.6 LBS, HT 60 IN, BMI 22.18 INDEX, BP 104/59 MM HG, HR 77 /MIN, RR 16 /MIN, TEMP 97.7 F, OXYGEN SAT % 99%, NA INITIALS SC 08:57. EXAMINATION GENERAL EXAMINATION: PSYCHALERT , ORIENTED X 3 , APPROPRIATE MOOD AND AFFECT , , GOOD EYE CONTACT. LUNGS:CLEAR TO AUSCULTATION BILATERALLY, NO WHEEZES .. HEART:HEART RATE REGULAR. MUSCULOSKELETAL:MUSCLE STRENGTH TESTING 5/5 RIGHT UPPER AND LOWER EXTREMITY. 5-/5 LEFT LOWER EXTREMITY, 4/5 LEFT UPPER EXTREMITY BOTH DISTALLY AND PROXIMALLY. . NEUROLOGIC EXAM:SENSORY AND TEMPERATURE SENSATION DECREASE ON LEFT HEAD, NECK UPPER EXTREMITIES.DTR'S TRACE RUE, 2+ ZONIA, 1+ BLE. FLATTENING OF THE LEFT FACIAL FEATURES NOTED. . DIAGNOSTIC TESTS REVIEWEDMRI OF BRAIN WITH AND WITHOUT CONTRAST COMPLETED ON 06/29/16. . MRA OF BRAIN WITHOUT CONTRAST COMPLETED ON 06/29/16 BOTH TEST RESULTS AGAIN REVIEWED AND DISCUSSED WITH PATIENT. 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 SEE PRIMARY DOCTOR ABOUT DNR.UTOX TODAY. CLINICAL NOTES: ISTOP REGISTRY REVIEWED AND DEMNOSTRATES COMPLLIANCE. BRINGS IN MEDICATIONS WHICH IS APPROPRIATE FOR WHAT WAS DISPENSED. RECENT URINE TOXICOLOGY REVIEWED. NO UNAUTHORIZED MEDICATIONS. NO ILLICIT SUBSTANCES AND PRESCRIBED MEDICATIONS WERE PRESENT. PREVENTIVE MEDICINE PAIN CLINIC TEACHING: MEDICATIONS BUTALBITAL/ACETAMINOPHEN INFORMATION GIVEN TO PT.. PROCEDURE CODES FA211 ESTABILISHED PATIENT MERGED WITH [facility] CHARGE DISPOSITION & COMMUNICATION FOLLOW UP 1 MONTH (REASON: MIGRAINE, GENERALIZED PAIN) ELECTRONICALLY SIGNED BY NAMITA PEÑA ON 08/10/2016 AT 08:23 AM EDT DISCLAIMER : THIS IS A VISIT SUMMARY EXTRACTED FROM THE hint CHART. IT IS NOT A COPY OF THE hint PROGRESS NOTE. YE
== END ==
LOC: M PAIN 09:00
PROVIDERS: ATTEND Nurse Practitioner Family
DX: M54.81 Occipital neuralgia (principal); G43.109 Migraine with aura, not intractable, without status migrainosus; D18.02 Hemangioma of intracranial structures; M79.7 Fibromyalgia; K21.9 Gastro-esophageal reflux disease without esophagitis; R13.10 Dysphagia, unspecified; Z79.891 Long term (current) use of opiate analgesic; Z79.899 Other long term (current) drug therapy; Z88.3 Allergy status to other anti-infective agents; Z88.2 Allergy status to sulfonamides; Z88.8 Allergy status to other drugs, medicaments and biological substances; Z88.6 Allergy status to analgesic agent; Z91.030 Bee allergy status; Z91.040 Latex allergy status; Z91.010 Allergy to peanuts; Z72.0 Tobacco use

== ENCOUNTER → 2016-09-07 | Outpatient (CLI) | payer MEDICARE, MEDICAID ==
--- NOTE | 2016-10-01 23:33 | ECWPNPC ---
PATIENT NAME: ALBERTO HUNT : 1975 GENDER: FEMALE VISIT DATE: 09/07/2016 DISCHARGE DATE: 09/07/16 1213 VISIT LOCKED DATE TIME: PHYSICIAN: JOCELYN ROBISON RESOURCE: JOCELYN ROBISON REASON FOR APPOINTMENT 1. MIGRAINE HISTORY OF PRESENT ILLNESS HISTORY OF PRESENT ILLNESS: PAIN THE PATIENT DESCRIBES THE PAIN... FALL RISK SCREENING: SCREENING :NO FALLS IN THE PAST YEAR TODAY'S VISIT: NOTES: WAS NOT ABLE TO START ON FIORICET. REPORTS HEADACHES ARE OUT OF CONTROL. DOES NOT WANT ANY INJECTIONS. REPORTS PAIN LEVEL IS 3/10. REPORTS AN INCREASE IN VERTIGO. HAS HAD FALLS FROM DISORIENTATION. IS STILL HAVING DIFF WITH LEFT ARM COORDINATION ISSUES AND SENSATION. DID SEE DR SCHMID WHO IS NEUROLOGIST AND NEUROSURGEON. HE WANTS TO REFER HER TO ANOTHER NEUROSURGEON. HAS BEEN HAVING TROUBLE WITH BRIGHT LIGHTS, AND COGNITIVE PROCESSING. STILL WITH INTERMITTANT NAUSEA.. CURRENT MEDICATIONS TAKING EMLA 2.5-2.5 % CREAM DIRECTED EXTERNALLY APPLY Q 4 HRS TO PAINFUL AREAS OF HEAD TAKING EXCEDRIN TENSION HEADACHE 500-65 MG TABLET ORALLY TAKING PROMETHAZINE HCL 25 MG TABLET 1 TABLET NEEDED ORALLY THREE TIMES DAILY TAKING TRAZODONE HCL 150 MG TABLET 1 TABLET AT BEDTIME ORALLY ONCE A DAY TAKING VALIUM 2 MG TABLET 1 TABLET NEEDED ORALLY Q 6-8 HRS PRN SEVERE SPASM, NOTES: NOT WORKING MEDICATION LIST REVIEWED AND RECONCILED WITH THE PATIENT PAST MEDICAL HISTORY ?DIABETES MELLITUS DIAGNOSED 2002 DIET CONTROLLED ADULT HODGKIN'S LYMPHOMA 1995- TREATED WITH CHEMO. IN REMISSION - PREVIOUSLY FOLLOWED WITH DR. MARIA FIBROMYALGIA - PAIN CLINIC HYPERLIPIDEMIA HISTORY OF PSYCHIATRIC DISORDER AND WAS TAKING MEDICATIONS PRESCRIBED BY DR. HYDE. HOWEVER STOPPED TAKING EVERYTHING AFTER SHE HAD UNEXPLAINED SYNCOPE. ANXIETY/DEPRESSION/PTSD - FOLLOWED BY BEHAVIORAL HEALTH FOLLOWING WITH THERAPIST - SHE WAS DISCHARGED FROM BEHAVIORAL HEALTH FOR CANCELLATION OF APPOINTMENTS. CT CHEST 04/2014 - LUNG NODULE - F/U CT 03/2015 - NODULE RESOLVED. CHRONIC CONSTIPATION - FOLLWED BY DR. BRIDGES ON AMITIZA TOBACCO ABUSE ALLERGIC RHINNITIS ?COPD/ASTHMA - METHALCHOLINE CHALLENGE PENDING 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 MARAVILLA) GERD MIGRAINES - DR. ROBERTS ALLERGIES IODINE: ANAPHYLAXIS: ALLERGY SULFA (FOR ALLERGY USE ONLY): DIARRHEA,VOMITTING,HIVES: ALLERGY BUSPAR: MEMORY LOSS: ALLERGY LITHIUM CARBONATE: NAUSEA/VOMITING, DEHYRATION: ALLERGY MEDROXYPROGESTERONE ACETATE: HIVES: ALLERGY IBUPROFEN: NAUSEA/VOMITING,DIARRHEA: ALLERGY LYRICA: SWELLING OF FEET AND HANDS: ALLERGY FLEXERIL: INCREASED HEART RATE: SIDE EFFECTS BEE STINGS: ANAPHYLAXIS: ALLERGY LATEX (FOR ALLERGY USE ONLY): RASH: ALLERGY PEANUTS: ANAPHYLAXIS: ALLERGY NO BLOOD THINNERS: CONTRAINDICATION CHANTIX: AUDITORY HALLUCINATIONS: SIDE EFFECTS EXCEDRIN MIGRAINE: POSSIBLE BLEEDING: SIDE EFFECTS REMERON: ALLERGY BLOOD THINNERS/ASPIRIN: HEMANGIOMA BRAIN: CONTRAINDICATION REVIEW OF SYSTEMS REVIEWED BY: PROVIDER: JOCELYN ADAME . CONSTITUTIONAL: ANY CHANGE IN YOUR MEDICAL CONDITION? YES, WANTS TO DISCUSS WITH YOANDY . CHILLS NO . FEVER NO . INFECTION: DO YOU HAVE NEW INFECTIONS? NO . DO YOU HAVE HISTORY OF MRSA? NO . MUSCULOSKELETAL: ANY NEW PATTERNS OF PAIN OR NUMBNESS? NO . GASTROENTEROLOGY: ANY NEW CHANGE IN BOWEL CONTROL? NO . GENITOURINARY: ANY NEW CHANGE IN BLADDER CONTROL? YES, MORE FREQUENT AND URGENCY . IS THERE A CHANCE YOU COULD BE ? NO . HEMATOLOGY/LYMPH: DO YOU TAKE ANY BLOOD THINNERS? (FOR EXAMPLE- COUMADIN, PLAVIX, AGGRENOX, PLATEL, PRADAXA, OR XARELTO) NO . WHEN WAS YOUR LAST DOSE? DATE: TIME: . NEUROLOGY: HAVE YOU FALLEN IN THE PAST 6 MONTHS? YES, JUST FALLS WITHOUT WARNING SOMETIMES, OTHER TIMES SHE GETS DISORIENTED FIRST . ANY NEW EXTREMITY NUMBNESS OR WEAKNESS? NO . HEADACHE FREQ MIGRAINES . LOSS OF SENSATION IN SPECIFIC BODY AREA LEFT FACE, LEFT ARM AND SOME IN LEFT LEG . CARDIOLOGY: DO YOU HAVE A PACEMAKER OR DEFIBRILLATOR? NO . RESPIRATORY: HAVE YOU BEEN SICK IN THE PAST WEEK? NO . FEVER NO . FLU LIKE SYMPTOMS? NO . COUGH NO . INTEGUMENTARY: DO YOU HAVE ANY RASHES OR OPEN SORES? NO . ALLERGIC/IMMUNO: ARE YOU ALLERGIC TO SHELLFISH OR IV DYE? YES, IODINE . ANY NEW ALLERGIES? NO . PSYCHIATRIC: DO YOU HAVE THOUGHTS OF HURTING YOURSELF OR SOMEONE ELSE? NO . ARE YOU ABUSED, NEGLECTED, OR IN AN UNSAFE ENVIRONMENT? NO . ENDOCRINOLOGY: ARE YOU DIABETIC? NO . OTHER: DO YOU NEED ANY PRESCRIPTIONS? NEEDS TO DISCUSS WITH YOANDY . IF YES, PLEASE LIST: ____ . ANY NEW PROBLEMS WITH YOUR MEDICATIONS? NO . WHEN DID YOU LAST EAT? ____ . WHEN DID YOU LAST DRINK? ____ . WHAT DID YOU LAST DRINK? ____ . NAME OF PERSON DRIVING YOU HOME? ____ . DO YOU HAVE ANY OTHER QUESTIONS OR CONCERNS WAS UABLE TO GET THE FIORICET YOU ORDERED LAST TIME . PSYCHOLOGY: ANXIETY HAS JUST RESTARTED COUNSELING. IS IN THE PROCESESS OF FILING FOR DIVORCE . VITAL SIGNS WT 115 LBS, HT 60 IN, BMI 22.46 INDEX, BP 109/58 MM HG, HR 64 /MIN, RR 16 /MIN, TEMP 98.3 F, OXYGEN SAT % 99%, NA INITIALS SC 11:36, REVIEWED BY: NL. EXAMINATION GENERAL EXAMINATION: PSYCHALERT , ORIENTED X 3 , APPROPRIATE MOOD AND AFFECT , , GOOD EYE CONTACT. LUNGS:CLEAR TO AUSCULTATION BILATERALLY, NO WHEEZES .. HEART:HEART RATE REGULAR. MUSCULOSKELETAL:MUSCLE STRENGTH TESTING 5/5 RIGHT UPPER AND LOWER EXTREMITY. 5-/5 LEFT LOWER EXTREMITY, 4/5 LEFT UPPER EXTREMITY BOTH DISTALLY AND PROXIMALLY. . NEUROLOGIC EXAM:SENSORY AND TEMPERATURE SENSATION DECREASE ON LEFT HEAD, NECK UPPER EXTREMITIES.DTR'S TRACE RUE, 2+ ZONIA, 1+ BLE. FLATTENING OF THE LEFT FACIAL FEATURES NOTED. PHOTOPHOBIA NOTED TODAY. 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 FACILITY CHARGE G1430 PAIN ASSESS POS TOOL F/U PLAN DOC G8427 DOC MEDS VERIFIED W/PT OR RE DISPOSITION & COMMUNICATION FOLLOW UP 1 MONTH (REASON: MIGRAINE) ELECTRONICALLY SIGNED BY NAMITA PEÑA ON 10/01/2016 AT 02:30 PM EDT DISCLAIMER : THIS IS A VISIT SUMMARY EXTRACTED FROM THE [employer] CHART. IT IS NOT A COPY OF THE [employer] PROGRESS NOTE. YE
== END ==
LOC: M PAIN 10:40
PROVIDERS: ATTEND Nurse Practitioner Family
DX: G89.29 Other chronic pain (principal); M54.81 Occipital neuralgia; G43.109 Migraine with aura, not intractable, without status migrainosus; D18.02 Hemangioma of intracranial structures; E11.9 Type 2 diabetes mellitus without complications; M79.7 Fibromyalgia; E78.5 Hyperlipidemia, unspecified; K21.9 Gastro-esophageal reflux disease without esophagitis; R35.0 Frequency of micturition; Z88.8 Allergy status to other drugs, medicaments and biological substances; Z88.2 Allergy status to sulfonamides; Z88.6 Allergy status to analgesic agent; Z91.030 Bee allergy status; Z91.040 Latex allergy status; Z91.010 Allergy to peanuts; Z79.891 Long term (current) use of opiate analgesic; Z79.899 Other long term (current) drug therapy

== ENCOUNTER → 2016-10-13 | Outpatient (CLI) | payer MEDICARE, MEDICAID ==
--- NOTE | 2016-10-30 00:48 | ECWPNPC ---
PATIENT NAME: ALBERTO HUNT : 1975 GENDER: FEMALE VISIT DATE: 10/13/2016 DISCHARGE DATE: 10/13/16 1141 VISIT LOCKED DATE TIME: PHYSICIAN: JOCELYN ROBISON RESOURCE: JOCELYN ROBISON REASON FOR APPOINTMENT 1. 1 MONTH, CHRONIC PAIN HISTORY OF PRESENT ILLNESS HISTORY OF PRESENT ILLNESS: PAIN THE PATIENT DESCRIBES THE PAIN... FALL RISK SCREENING: SCREENING :NO FALLS IN THE PAST YEAR TODAY'S VISIT: NOTES: RATES PAIN TODAY 6/10. DESCRIBES PAIN ACHING, BURNING, TENDER AND THROBBING. NOTES PAIN AREAS LEFT HEAD, NECK SHOULDERS, LOW BACK AND LEFT HIP AND BOTH KNEES.WAS NERVOUS TO TRY THE PROPANOLOL FOR MIGRAINE PREVENTION. STILL HAVING NAUSEA PRMETHAZINE AND ZOFRAN ARE HELPFUL. IS HAVING ISSUES WITH MEMORY. LITTLE APPETTITE. HOT AND COLD CHILLS. SAW DR Lam REAGAN THIS AM - THEY DID DISCUSS OPTION OF HOSPICE. . CURRENT MEDICATIONS TAKING EMLA 2.5-2.5 % CREAM DIRECTED EXTERNALLY APPLY Q 4 HRS TO PAINFUL AREAS OF HEAD TAKING EXCEDRIN TENSION HEADACHE 500-65 MG TABLET ORALLY 2-3 TIMES A DAY NEEDED TAKING PROMETHAZINE HCL 25 MG TABLET 1 TABLET NEEDED ORALLY THREE TIMES DAILY TAKING TRAZODONE HCL 150 MG TABLET 1 TABLET AT BEDTIME ORALLY ONCE A DAY NEEDED TAKING VALIUM 2 MG TABLET 1 TABLET NEEDED ORALLY Q 6-8 HRS PRN SEVERE SPASM, NOTES: TAKING EVERY 4-5 HOURS NEEDED TAKING PERCOCET 5-325 MG TABLET 1 TABLET NEEDED ORALLY EVERY 6 -8 HRS PRN PAIN, NOTES: TAKING EVERY 4-5 HOURS NEEDED NOT-TAKING PROPRANOLOL HCL 10 MG TABLET 1 TABLET ORALLY TWICE A DAY, NOTES: DID NOT START MEDICATION LIST REVIEWED AND RECONCILED WITH THE PATIENT PAST MEDICAL HISTORY 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 MARAVILLA); PT DECLINED SUTRGICAL INTERVENTION (SEE 10/23 NOTE) ?DIABETES MELLITUS DIAGNOSED 2002 DIET CONTROLLED ADULT HODGKIN'S LYMPHOMA 1995- TREATED WITH CHEMO. IN REMISSION - PREVIOUSLY FOLLOWED WITH DR. MARIA FIBROMYALGIA - PAIN CLINIC HYPERLIPIDEMIA HISTORY OF PSYCHIATRIC DISORDER AND WAS TAKING MEDICATIONS PRESCRIBED BY DR. HYDE. HOWEVER STOPPED TAKING EVERYTHING AFTER SHE HAD UNEXPLAINED SYNCOPE. ANXIETY/DEPRESSION/PTSD - FOLLOWED BY BEHAVIORAL HEALTH FOLLOWING WITH THERAPIST - SHE WAS DISCHARGED FROM BEHAVIORAL HEALTH FOR CANCELLATION OF APPOINTMENTS. CT CHEST 04/2014 - LUNG NODULE - F/U CT 03/2015 - NODULE RESOLVED. CHRONIC CONSTIPATION - FOLLWED BY DR. BRIDGES ON AMITIZA TOBACCO ABUSE ALLERGIC RHINNITIS ?COPD/ASTHMA - METHALCHOLINE CHALLENGE PENDING GERD MIGRAINES - DR. ROBERTS ALLERGIES IODINE: ANAPHYLAXIS: ALLERGY SULFA (FOR ALLERGY USE ONLY): DIARRHEA,VOMITTING,HIVES: ALLERGY BUSPAR: MEMORY LOSS: ALLERGY LITHIUM CARBONATE: NAUSEA/VOMITING, DEHYRATION: ALLERGY MEDROXYPROGESTERONE ACETATE: HIVES: ALLERGY IBUPROFEN: NAUSEA/VOMITING,DIARRHEA: ALLERGY LYRICA: SWELLING OF FEET AND HANDS: ALLERGY FLEXERIL: INCREASED HEART RATE: SIDE EFFECTS BEE STINGS: ANAPHYLAXIS: ALLERGY LATEX (FOR ALLERGY USE ONLY): RASH: ALLERGY PEANUTS: ANAPHYLAXIS: ALLERGY NO BLOOD THINNERS: CONTRAINDICATION CHANTIX: AUDITORY HALLUCINATIONS: SIDE EFFECTS EXCEDRIN MIGRAINE: POSSIBLE BLEEDING: SIDE EFFECTS REMERON: ALLERGY BLOOD THINNERS/ASPIRIN: HEMANGIOMA BRAIN: CONTRAINDICATION SOCIAL HISTORY GENERAL: TOBACCO USE ARE YOU A:CURRENT SMOKER HOW MANY CIGARETTES A DAY DO YOU SMOKE?11-20 HOW SOON AFTER YOU WAKE UP DO YOU SMOKE YOUR FIRST CIGARETTE?WITHIN 5 MIN HOW OFTEN DO YOU SMOKE CIGARETTES?EVERY DAY PATIENT COUNSELED ON THE DANGERS OF TOBACCO USE AND URGED TO QUIT:08/10/2016 ARE YOU INTERESTED IN QUITTING?THINKING ABOUT QUITTING COUNSELED THE PATIENT ON SMOKING CESSATION, EDUCATION [id number]/2017 ALCOHOL SCREENING DID YOU HAVE A DRINK CONTAINING ALCOHOL IN THE PAST YEAR?YES HOW OFTEN DID YOU HAVE A DRINK CONTAINING ALCOHOL IN THE PAST YEAR?MONTHLY OR LESS (1 POINT) HOW MANY DRINKS DID YOU HAVE ON A TYPICAL DAY WHEN YOU WERE DRINKING IN THE PAST YEAR?1 OR 2 (0 POINTS) HOW OFTEN DID YOU HAVE SIX OR MORE DRINKS ON ONE OCCASION IN THE PAST YEAR?LESS THAN MONTHLY (1 POINT) POINTS2 INTERPRETATIONNEGATIVE RECREATIONAL DRUG USE DENIES. CAFFEINE 1 CUP EVERY 2-3 DAYS. SEXUAL HX HAD SEX IN THE LAST 12 MONTHS (VAGINAL, ORAL, OR ANAL)?YES WITHMEN ONLY USE PROTECTION?YES HOW OFTEN?MOST OF THE TIME HAVE YOU EVER HAD AN STD?YES CHLAMYDIA?YES OTHER?NO LMP:2004 OCCUPATION: DISABLED. DIET: LOW CARBS,. EXERCISE: NONE. MARITAL STATUS: -NOT LIVING TOGETHER. OTHERS AT HOME: BROTHER IN LAW. PETS: CATS. PENTECOSTALISM NO SAMARITAN BELIEFS THAT WOULD IMPACT HEALTH CARE. LANGUAGE BELARUSIAN. 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 LEARNING BARRIERS / SPECIAL NEEDS BARRIERS TO LEARNING?NO HEARING IMPAIRED?NO VISION IMPAIRED?NO COGNITIVELY IMPAIRED?NO READINESS TO LEARN?YES LEARNING PREFERENCES?NO LEARNING CAPABILITIES PRESENT?YES EMOTIONAL BARRIERS?NO SPECIAL DEVICES?NO WOOD HEEL FLAP INSERTER NEEDED?NO PSYCHOLOGICAL HX TREATMENT HX OF PTSD MALE 6 MONTH RISK ASSESSMENT FOR STD DESCRIBE YOUR SEXUAL PARTNERS:MEN PAIN CLINIC PFS, CLERGY, PUBLIC HEALTH REFERRALS PFS REFERRAL NEEDED?NO CLERGY REFERRAL NEEDED?NO PUBLIC HEALTH REFERRAL NEEDED?NO WAS THE PROVIDER NOTIFIED OF ANY PERTINENT INFO?YES HAS THE PATIENT BEEN EDUCATED REGARDING HIS/HER PLAN OF CARE?YES HAS THE PATIENT BEEN EDUCATED REGARDING PAIN, THE RISK FOR PAIN, THE IMPORTANCE OF EFFECTIVE PAIN MANAGEMENT, AND THE PAIN ASSESSMENT PROCESS?YES REVIEWED BY: CORRY. ADVANCE DIRECTIVES HEALTH CARE PROXY?YES NAME OF HCP VANESSA HUNT II ([id number]) [phone] DO YOU HAVE A DNR?YES POWER OF SURGICAL INSTRUMENT REPAIR SPECIALIST?YES SAME HCP HOUSING: [employer] TRA[employer]. REVIEW OF SYSTEMS FOLLOW-UP ROS: PSYCHOLOGY: CONTINUES WITH COUNSELOR . REVIEWED BY: PROVIDER: JOCELYN ADAME . CONSTITUTIONAL: ANY CHANGE IN YOUR MEDICAL CONDITION? NO . CHILLS NO . FEVER NO . INFECTION: DO YOU HAVE NEW INFECTIONS? NO . DO YOU HAVE HISTORY OF MRSA? NO . MUSCULOSKELETAL: ANY NEW PATTERNS OF PAIN OR NUMBNESS? YES, SENSITIVITY HAS INCREASED ON LEFT SIDE OF FACE AND OCCASIONALLY ON RIGHT SIDE OF FACE NOW. INCREASED SENSENSATION ALL OF FINGERS AND THUMB LEFT HAND . GASTROENTEROLOGY: ANY NEW CHANGE IN BOWEL CONTROL? YES, BOWELS LOOSE . GENITOURINARY: ANY NEW CHANGE IN BLADDER CONTROL? YES, URINATING MORE FREQUENTLY . IS THERE A CHANCE YOU COULD BE ? NO . HEMATOLOGY/LYMPH: DO YOU TAKE ANY BLOOD THINNERS? (FOR EXAMPLE- COUMADIN, PLAVIX, AGGRENOX, PLATEL, PRADAXA, OR XARELTO) NO . WHEN WAS YOUR LAST DOSE? DATE: TIME: . NEUROLOGY: HAVE YOU FALLEN IN THE PAST 6 MONTHS? YES . ANY NEW EXTREMITY NUMBNESS OR WEAKNESS? NO . CARDIOLOGY: DO YOU HAVE A PACEMAKER OR DEFIBRILLATOR? NO . RESPIRATORY: HAVE YOU BEEN SICK IN THE PAST WEEK? NO . FEVER NO . FLU LIKE SYMPTOMS? NO . COUGH NO . INTEGUMENTARY: DO YOU HAVE ANY RASHES OR OPEN SORES? NO . ALLERGIC/IMMUNO: ARE YOU ALLERGIC TO SHELLFISH OR IV DYE? YES . ANY NEW ALLERGIES? NO . PSYCHIATRIC: DO YOU HAVE THOUGHTS OF HURTING YOURSELF OR SOMEONE ELSE? NO . ARE YOU ABUSED, NEGLECTED, OR IN AN UNSAFE ENVIRONMENT? NO . ENDOCRINOLOGY: ARE YOU DIABETIC? NO . OTHER: DO YOU NEED ANY PRESCRIPTIONS? YES . IF YES, PLEASE LIST: PERCOCET AND VALIUM . ANY NEW PROBLEMS WITH YOUR MEDICATIONS? NO . WHEN DID YOU LAST EAT? ____ . WHEN DID YOU LAST DRINK? ____ . WHAT DID YOU LAST DRINK? ____ . NAME OF PERSON DRIVING YOU HOME? ____ . DO YOU HAVE ANY OTHER QUESTIONS OR CONCERNS NO . VITAL SIGNS WT 114.2 LBS, HT 60 IN, BMI 22.30 INDEX, BP 126/45 MM HG, HR 64 /MIN, RR 16 /MIN, TEMP 98.0 F, OXYGEN SAT % 99%, NA INITIALS AW 1048, REVIEWED BY: RENE. EXAMINATION GENERAL EXAMINATION: NEUROLOGIC EXAM:HIGH FREQ TREMOR. 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 (#[id number])BRINGS IN MEDICATIONS WHICH IS APPROPRIATE FOR WHAT WAS DISPENSED. RECENT URINE TOXICOLOGY REVIEWED. NO UNAUTHORIZED MEDICATIONS. NO ILLICIT SUBSTANCES AND PRESCRIBED MEDICATIONS WERE PRESENT. PROCEDURE CODES FA211 ESTABILISHED PATIENT [facility] CHARGE DISPOSITION & COMMUNICATION FOLLOW UP 3 MONTHS (REASON: GENERALIZED PAIN) ELECTRONICALLY SIGNED BY NAMITA PEÑA ON 10/29/2016 AT 03:14 PM EDT DISCLAIMER : THIS IS A VISIT SUMMARY EXTRACTED FROM THE [employer] CHART. IT IS NOT A COPY OF THE [employer] PROGRESS NOTE. YE
== END ==
LOC: M PAIN 11:00
PROVIDERS: ATTEND Nurse Practitioner Family
DX: G89.29 Other chronic pain (principal); M54.81 Occipital neuralgia; G43.109 Migraine with aura, not intractable, without status migrainosus; D18.02 Hemangioma of intracranial structures; J44.9 Chronic obstructive pulmonary disease, unspecified; K21.9 Gastro-esophageal reflux disease without esophagitis; F17.210 Nicotine dependence, cigarettes, uncomplicated; M79.7 Fibromyalgia; Z88.8 Allergy status to other drugs, medicaments and biological substances; Z88.2 Allergy status to sulfonamides; Z88.6 Allergy status to analgesic agent; Z91.030 Bee allergy status; Z91.040 Latex allergy status; Z91.010 Allergy to peanuts; Z79.899 Other long term (current) drug therapy
CPT/HCPCS: 99497; G0463

== ENCOUNTER 2016-11-21 20:35 | Emergency (ER) | payer MEDICARE, MEDICAID ==
[~2016-11-21] VITALS: Ht 152.4 cm; Wt 63.5 kg
[~2016-11-21 20:35] MED LIST changes: -DIAZ2TAB; -LEVOTAB10; -ZOFR4TAB3 PO
[2016-11-21] MEDS ORDERED: LEVOTAB10 (21:30)
[2016-11-21] MEDS ORDERED: ZOFR4TAB3 PO (21:30)
[2016-11-21] MEDS ORDERED: DIAZ2TAB (21:30)
[2016-11-21] MEDS ORDERED: METOCLOPRAMIDE INJ 10MG/2ML VIAL (J2765) IV ONE (22:45)
[2016-11-21] MEDS ORDERED: KETOROLAC 30 MG/ML VIAL (J1885) IV ONE (22:45)
[2016-11-21] MEDS ORDERED: NS 1,000 ML IV ONE (22:45)
[2016-11-21] MEDS ORDERED: diphenhydrAMINE INJ 50MG/ML VIAL (J1200) IV ONE (22:45)
--- NOTE | 2016-11-22 | REPUSA ---
CT of the head Clinical history: neurological deficits. Comparison: 02/27/2008. MRI 06/29/2016. Technique: Multiple axial CT images were obtained through the head without administration of contrast . Findings: There is a large, hyperdense lesion along the right lateral aspect of the alcides, measuring 3 .2 x 2.4 cm. A central area of low attenuation is noted. The ventricles and sulci are symmetric bilat erally. There is no evidence of acute hemorrhage or infarct. The osseous structures are unremarkable. The visualized paranasal sinuses and mastoid air cells are clear. Impression: 1. Mass in the Alcides as described. This corresponds to the mass described as a hemangioma on the prior MRI examination. Overall, it may have slightly increased in size since the prior study. 2. No significant change in surrounding mass effect or edema at this time. ER physician was notified of these findings at 11:53 PM on 11/21/2016.
[2016-11-22 00:18] VITALS: BP 110/62
== END 2016-11-22 00:48 | disposition home or self-care (01) ==
LOC: M ED 20:35
DX: G43.909 Migraine, unspecified, not intractable, without status migrainosus (principal)
CPT/HCPCS: 70450; 96374; 96375; 99283; J1200; J1885; J2765

== ENCOUNTER → 2017-01-03 | Outpatient (CLI) | payer MEDICARE, MEDICAID ==
[~2017-01-03] MED LIST changes: +DIAZ2TAB; +LEVOTAB10; +ZOFR4TAB3 PO
--- NOTE | 2017-01-23 00:17 | ECWPNPC ---
PATIENT NAME: ALBERTO HUNT : 1975 GENDER: FEMALE VISIT DATE: 01/03/2017 DISCHARGE DATE: 01/03/17 1345 VISIT LOCKED DATE TIME: PHYSICIAN: JOCELYN ROBISON RESOURCE: JOCELYN ROBISON REASON FOR APPOINTMENT 1. CHRONIC PAIN HISTORY OF PRESENT ILLNESS HISTORY OF PRESENT ILLNESS: PAIN THE PATIENT DESCRIBES THE PAIN... FALL RISK SCREENING: SCREENING :NO FALLS IN THE PAST YEAR TODAY'S VISIT: NOTES: IS BROUGHT BY WC BY HER COUSIN TO THE APPOINTMENT. IS UNABLE TO BE INDEPENDANT. HAS HAD MULTIPLE FALLS AND IS UNABLE TO TOILET HERSELF. IS HAVING VERY DIFFICULT TIME SWALLOWING, TALKING AND FINDING A COMFORTABLE POSITION. FAMILY IS ASSISTING WITH MEDS BUT IS NOT ABLE TO BE WITH EHR 29/08.. CURRENT MEDICATIONS TAKING EMLA 2.5-2.5 % CREAM DIRECTED EXTERNALLY APPLY Q 4 HRS TO PAINFUL AREAS OF HEAD TAKING EXCEDRIN TENSION HEADACHE 500-65 MG TABLET ORALLY 2-3 TIMES A DAY NEEDED TAKING TRAZODONE HCL 150 MG TABLET 1 TABLET AT BEDTIME ORALLY ONCE A DAY NEEDED TAKING PROMETHAZINE HCL 25 MG TABLET 1 TABLET NEEDED ORALLY THREE TIMES DAILY TAKING UNIVERSAL ARM SLING - MISCELLANEOUS G81.14 _ LEFT TAKING PERCOCET 5-325 MG TABLET 1 TABLET NEEDED ORALLY EVERY 6 -8 HRS PRN PAIN TAKING VALIUM 2 MG TABLET 1 TABLET NEEDED ORALLY Q 6-8 HRS PRN SEVERE SPASM TAKING FENTANYL 12 MCG/HR PATCH 72 HOUR 1 PATCH TO SKIN TRANSDERMAL APPLY 1 PATCH Q 72 HOURS MDD=1 TAKING ZOFRAN ODT 8 MG TABLET DISINTEGRATING DIRECTED ORALLY Q 6 HRS PRN NAUSEA. 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 MARAVILLA); PT DECLINED SUTRGICAL INTERVENTION (SEE 10/23 NOTE) ?DIABETES MELLITUS DIAGNOSED 2002 DIET CONTROLLED ADULT HODGKIN'S LYMPHOMA 1995- TREATED WITH CHEMO. IN REMISSION - PREVIOUSLY FOLLOWED WITH DR. MARIA FIBROMYALGIA - PAIN CLINIC HYPERLIPIDEMIA HISTORY OF PSYCHIATRIC DISORDER AND WAS TAKING MEDICATIONS PRESCRIBED BY DR. HYDE. HOWEVER STOPPED TAKING EVERYTHING AFTER SHE HAD UNEXPLAINED SYNCOPE. ANXIETY/DEPRESSION/PTSD - FOLLOWED BY BEHAVIORAL HEALTH FOLLOWING WITH THERAPIST - SHE WAS DISCHARGED FROM BEHAVIORAL HEALTH FOR CANCELLATION OF APPOINTMENTS. CT CHEST 04/2014 - LUNG NODULE - F/U CT 03/2015 - NODULE RESOLVED. CHRONIC CONSTIPATION - FOLLWED BY DR. BRIDGES ON AMITIZA TOBACCO ABUSE ALLERGIC RHINNITIS ?COPD/ASTHMA - METHALCHOLINE CHALLENGE PENDING GERD MIGRAINES - DR. ROBERTS ALLERGIES IODINE: ANAPHYLAXIS: ALLERGY SULFA (FOR ALLERGY USE ONLY): DIARRHEA,VOMITTING,HIVES: ALLERGY BUSPAR: MEMORY LOSS: ALLERGY LITHIUM CARBONATE: NAUSEA/VOMITING, DEHYRATION: ALLERGY MEDROXYPROGESTERONE ACETATE: HIVES: ALLERGY IBUPROFEN: NAUSEA/VOMITING,DIARRHEA: ALLERGY LYRICA: SWELLING OF FEET AND HANDS: ALLERGY FLEXERIL: INCREASED HEART RATE: SIDE EFFECTS BEE STINGS: ANAPHYLAXIS: ALLERGY LATEX (FOR ALLERGY USE ONLY): RASH: ALLERGY PEANUTS: ANAPHYLAXIS: ALLERGY NO BLOOD THINNERS: CONTRAINDICATION CHANTIX: AUDITORY HALLUCINATIONS: SIDE EFFECTS EXCEDRIN MIGRAINE: POSSIBLE BLEEDING: SIDE EFFECTS REMERON: ALLERGY BLOOD THINNERS/ASPIRIN: HEMANGIOMA BRAIN: CONTRAINDICATION SOCIAL HISTORY GENERAL: TOBACCO USE ARE YOU A:CURRENT SMOKER HOW MANY CIGARETTES A DAY DO YOU SMOKE?11-20 HOW SOON AFTER YOU WAKE UP DO YOU SMOKE YOUR FIRST CIGARETTE?WITHIN 5 MIN HOW OFTEN DO YOU SMOKE CIGARETTES?EVERY DAY PATIENT COUNSELED ON THE DANGERS OF TOBACCO USE AND URGED TO QUIT:08/10/2016 ARE YOU INTERESTED IN QUITTING?THINKING ABOUT QUITTING COUNSELED THE PATIENT ON SMOKING CESSATION, EDUCATION [id number]/05/2017 ALCOHOL SCREENING DID YOU HAVE A DRINK CONTAINING ALCOHOL IN THE PAST YEAR?YES HOW OFTEN DID YOU HAVE A DRINK CONTAINING ALCOHOL IN THE PAST YEAR?MONTHLY OR LESS (1 POINT) HOW MANY DRINKS DID YOU HAVE ON A TYPICAL DAY WHEN YOU WERE DRINKING IN THE PAST YEAR?1 OR 2 (0 POINTS) HOW OFTEN DID YOU HAVE SIX OR MORE DRINKS ON ONE OCCASION IN THE PAST YEAR?LESS THAN MONTHLY (1 POINT) POINTS2 INTERPRETATIONNEGATIVE RECREATIONAL DRUG USE DENIES. CAFFEINE 1 CUP EVERY 2-3 DAYS. SEXUAL HX HAD SEX IN THE LAST 12 MONTHS (VAGINAL, ORAL, OR ANAL)?YES WITHMEN ONLY USE PROTECTION?YES HOW OFTEN?MOST OF THE TIME HAVE YOU EVER HAD AN STD?YES CHLAMYDIA?YES OTHER?NO LMP:2005 OCCUPATION: DISABLED. DIET: LOW CARBS,. EXERCISE: NONE. MARITAL STATUS: -NOT LIVING TOGETHER. OTHERS AT HOME: BROTHER IN LAW. PETS: CATS. EPISCOPALIAN NO PROTESTANT BELIEFS THAT WOULD IMPACT HEALTH CARE. LANGUAGE [place]. 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 LEARNING BARRIERS / SPECIAL NEEDS BARRIERS TO LEARNING?NO HEARING IMPAIRED?NO VISION IMPAIRED?NO COGNITIVELY IMPAIRED?NO READINESS TO LEARN?YES LEARNING PREFERENCES?NO LEARNING CAPABILITIES PRESENT?YES EMOTIONAL BARRIERS?NO SPECIAL DEVICES?YES :WALKER EDGE BEADER NEEDED?NO PSYCHOLOGICAL HX TREATMENT HX OF PTSD MALE 6 MONTH RISK ASSESSMENT FOR STD DESCRIBE YOUR SEXUAL PARTNERS:MEN PAIN CLINIC PFS, CLERGY, PUBLIC HEALTH REFERRALS PFS REFERRAL NEEDED?NO CLERGY REFERRAL NEEDED?NO PUBLIC HEALTH REFERRAL NEEDED?NO WAS THE PROVIDER NOTIFIED OF ANY PERTINENT INFO?YES HAS THE PATIENT BEEN EDUCATED REGARDING HIS/HER PLAN OF CARE?YES HAS THE PATIENT BEEN EDUCATED REGARDING PAIN, THE RISK FOR PAIN, THE IMPORTANCE OF EFFECTIVE PAIN MANAGEMENT, AND THE PAIN ASSESSMENT PROCESS?YES REVIEWED BY: CORRY. ADVANCE DIRECTIVES HEALTH CARE PROXY?YES NAME OF HCP VANESSA HUNT II ([id number]) [phone] DO YOU HAVE A DNR?YES POWER OF BOX MAKER?YES SAME HCP NO TRAVEL OUTSIDE US. 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 REVIEW OF SYSTEMS REVIEWED BY: PROVIDER: . CONSTITUTIONAL: ANY CHANGE IN YOUR MEDICAL CONDITION? NO . CHILLS NO . FEVER NO . INFECTION: DO YOU HAVE NEW INFECTIONS? NO . DO YOU HAVE HISTORY OF MRSA? NO . MUSCULOSKELETAL: ANY NEW PATTERNS OF PAIN OR NUMBNESS? YES, LEFT ANKLE . GASTROENTEROLOGY: ANY NEW CHANGE IN BOWEL CONTROL? YES, CONSTIPATION . GENITOURINARY: ANY NEW CHANGE IN BLADDER CONTROL? YES, URINATING TWICE A DAY DESPITE FEELING THE NEED TO GO . IS THERE A CHANCE YOU COULD BE ? NO . HEMATOLOGY/LYMPH: DO YOU TAKE ANY BLOOD THINNERS? (FOR EXAMPLE- COUMADIN, PLAVIX, AGGRENOX, PLATEL, PRADAXA, OR XARELTO) NO . WHEN WAS YOUR LAST DOSE? DATE: TIME: . NEUROLOGY: HAVE YOU FALLEN IN THE PAST 6 MONTHS? YES . ANY NEW EXTREMITY NUMBNESS OR WEAKNESS? NO . CARDIOLOGY: DO YOU HAVE A PACEMAKER OR DEFIBRILLATOR? NO . RESPIRATORY: HAVE YOU BEEN SICK IN THE PAST WEEK? YES . FEVER NO . FLU LIKE SYMPTOMS? NO . COUGH YES . INTEGUMENTARY: DO YOU HAVE ANY RASHES OR OPEN SORES? NO . ALLERGIC/IMMUNO: ARE YOU ALLERGIC TO SHELLFISH OR IV DYE? YES . ANY NEW ALLERGIES? NO . PSYCHIATRIC: DO YOU HAVE THOUGHTS OF HURTING YOURSELF OR SOMEONE ELSE? NO . ARE YOU ABUSED, NEGLECTED, OR IN AN UNSAFE ENVIRONMENT? NO . ENDOCRINOLOGY: ARE YOU DIABETIC? NO . OTHER: DO YOU NEED ANY PRESCRIPTIONS? YES . IF YES, PLEASE LIST: FENTANYL AND NAUSEA MEDS . ANY NEW PROBLEMS WITH YOUR MEDICATIONS? NO . WHEN DID YOU LAST EAT? ____ . WHEN DID YOU LAST DRINK? ____ . WHAT DID YOU LAST DRINK? ____ . NAME OF PERSON DRIVING YOU HOME? ____ . DO YOU HAVE ANY OTHER QUESTIONS OR CONCERNS NO . VITAL SIGNS WT 105.0 LBS, HT 60 IN, BMI 20.50 INDEX, BP 121/77 MM HG, HR 109 /MIN, RR 18 /MIN, TEMP 98.7 F, OXYGEN SAT % 96%, NA INITIALS TL 1053, REVIEWED BY: [facility] IS FLUCTUATING FROM 100'S-120'S, RN Emily.AWARE, PATIENT WAS UNABLE TO STAND TO BE WEIGHED, PT STATED SHE HAS LOST SOME WEIGHT AND IS APPROX. 105 LBS- TL. EXAMINATION GENERAL EXAMINATION: PSYCHALERT, SOMEWHAT DISORIENTED, SPEACH RAMBLING. . HEENT:MUCOUS MEMBRANES DRY. LUNGS:CLEAR TO AUSCULTATION BILATERALLY. HEART:HEART RATE REGULAR. ABDOMEN:BOWEL SOUNDS HYPERACTIVE. NOT DISTENDED. TENDER OVER SYMPHYSIS PUBIS. MUSCULOSKELETAL:LEFT FACIAL DROOP, LEFT SPASTIC QUADRIPARESIS. LEFT FOOT CONTRACTED, INTERNALLY ROTATED. . NEUROLOGIC EXAM:GAZE DISCONJUGATE. 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 PHONE CALL AND COMPUTER NOTE TO DR FROST CONTINUE CURRENT MEDS. PROCEDURE CODES FA211 ESTABILISHED PATIENT [facility] CHARGE DISPOSITION & COMMUNICATION FOLLOW UP WILL CALL TO SCHEDULE DEPENDING ON PTS LIVING SITUATION (REASON: GENERALIZED PAIN) ELECTRONICALLY SIGNED BY NAMITA PEÑA ON 01/22/2017 AT 04:11 PM EST DISCLAIMER : THIS IS A VISIT SUMMARY EXTRACTED FROM THE [employer] CHART. IT IS NOT A COPY OF THE [employer] PROGRESS NOTE. YE
== END ==
LOC: M PAIN 10:15
PROVIDERS: ATTEND Nurse Practitioner Family
DX: D18.02 Hemangioma of intracranial structures (principal); G81.14 Spastic hemiplegia affecting left nondominant side; M79.7 Fibromyalgia; Z71.89 Other specified counseling; F41.9 Anxiety disorder, unspecified; F32.9 Major depressive disorder, single episode, unspecified; F17.210 Nicotine dependence, cigarettes, uncomplicated; K59.00 Constipation, unspecified; Z88.2 Allergy status to sulfonamides; Z88.1 Allergy status to other antibiotic agents; Z88.6 Allergy status to analgesic agent; Z88.8 Allergy status to other drugs, medicaments and biological substances; Z91.030 Bee allergy status; Z91.040 Latex allergy status; Z91.010 Allergy to peanuts; Z79.891 Long term (current) use of opiate analgesic; Z79.899 Other long term (current) drug therapy; Z91.81 History of falling

== ENCOUNTER 2017-01-31 16:58 | Emergency (ER) | payer MEDICARE, MEDICAID ==
[2017-01-31 18:42] LABS: BASO # 0.1 10^3/uL (0.0-0.2); BASO % 0.4 % (0.0-1.0); EOS % 0.2 % (0.0-3.0); IMMATURE GRANULOCYTE # 0.1 10^3/uL (0-0); IMMATURE GRANULOCYTE % 0.3 % (0-0); LYMPH # 2.5 10^3/uL (1.5-4.5); LYMPH % 14.9 % (24.0-44.0); MEAN CORPUSCULAR HEMOGLOBIN 31.1 pg (27.0-33.0); MEAN CORPUSCULAR HGB CONC 33.6 g/dl (32.0-36.5); MEAN CORPUSCULAR VOLUME 92.6 fl (80.0-96.0); MONO # 0.9 10^3/uL (0.0-0.8); MONO % 5.2 % (0.0-5.0); NEUTROPHILS # 13.5 10^3/uL (1.8-7.7); PLATELET COUNT, AUTOMATED 270 10^3/uL (150-450); RED CELL DISTRIBUTION WIDTH 13.2 % (11.5-14.5)
[2017-01-31 18:53] LABS: KETONE, URINE AUTO RFX TRACE mg/dL (NEGATIVE); LEUKOCYTE ESTERASE UR AUTO RFX NEGATIVE (NEGATIVE); MUCUS, URINE RFX SMALL (NEGATIVE); NITRITE, URINE AUTO RFX NEGATIVE (NEGATIVE); RBC, URINE AUTO RFX 3 /HPF (0-3); SPECIFIC GRAVITY UR AUTO RFX 1.017 (1.002-1.035); SQUAM EPITHELIAL CELL UR AURFX 0 /HPF (0-6); TRIPLE PHOSPHATE CRYSTALS RFX SMALL; WBC, URINE AUTO RFX 31 /HPF (0-3)
[2017-01-31] MEDS: NS 1,000 ML IV (19:00)
[2017-01-31] MEDS: METOCLOPRAMIDE INJ 10MG/2ML VIAL (J2765) IV (19:00)
[2017-01-31] MEDS: diphenhydrAMINE INJ 50MG/ML VIAL (J1200) IV (19:00)
[2017-01-31 19:12] LABS: METHADONE URINE NEGATIVE (NEGATIVE)
[2017-01-31 19:19] LABS: ALBUMIN 3.7 GM/DL (3.2-5.2); ALBUMIN/GLOBULIN RATIO 1.23 (1.00-1.93); ALKALINE PHOSPHATASE 63 U/L (45-117); ALT/SGPT 12 U/L (12-78); ANION GAP 7 MEQ/L (8-16); AST/SGOT 12 U/L (7-37); BILIRUBIN,DIRECT 0.2 MG/DL (0.0-0.2); BILIRUBIN,TOTAL 0.7 MG/DL (0.2-1.0); BLOOD UREA NITROGEN 12 MG/DL (7-18); CALCIUM LEVEL 9.1 MG/DL (8.5-10.1); CARBON DIOXIDE LEVEL 30 MEQ/L (21-32); CHLORIDE LEVEL 105 MEQ/L (98-107); CREATININE FOR GFR 0.67 MG/DL (0.55-1.02); GLOMERULAR FILTRATION RATE > 60.0 (>58); GLUCOSE, FASTING 102 MG/DL (70-105); POTASSIUM SERUM 3.7 MEQ/L (3.5-5.1); SODIUM LEVEL 142 MEQ/L (136-145); TOTAL PROTEIN 6.7 GM/DL (6.4-8.2)
[2017-01-31] MEDS: PHENAZOPYRIDINE 100 MG TAB PO (20:00)
[2017-01-31] MEDS: CIPROFLOXACIN 500 MG TAB PO (20:00)
== END 2017-01-31 20:15 | disposition home or self-care (01) ==
LOC: M ED 16:58
DX: N39.0 Urinary tract infection, site not specified (principal); G43.909 Migraine, unspecified, not intractable, without status migrainosus; G93.9 Disorder of brain, unspecified; C85.90 Non-Hodgkin lymphoma, unspecified, unspecified site; M79.7 Fibromyalgia; F17.200 Nicotine dependence, unspecified, uncomplicated; Z79.899 Other long term (current) drug therapy; Z91.030 Bee allergy status; Z88.8 Allergy status to other drugs, medicaments and biological substances; Z88.6 Allergy status to analgesic agent; Z91.89 Other specified personal risk factors, not elsewhere classified; Z91.010 Allergy to peanuts; Z91.013 Allergy to seafood; Z88.2 Allergy status to sulfonamides
CPT/HCPCS: J1200

== ENCOUNTER → 2017-02-25 | Outpatient (CLI) | payer MEDICARE, MEDICAID | LOC: M RAD 08:55 | DX: D18.09 Hemangioma of other sites (principal) | CPT/HCPCS: 70551 ==

== ENCOUNTER 2017-02-28 20:43 | Emergency (ER) | payer MEDICARE, MEDICAID ==
[2017-02-28 23:56] LABS: KETONE, URINE AUTO RFX NEGATIVE (NEGATIVE); LEUKOCYTE ESTERASE UR AUTO RFX NEGATIVE (NEGATIVE); NITRITE, URINE AUTO RFX NEGATIVE (NEGATIVE); RBC, URINE AUTO RFX 2 /HPF (0-3); SQUAM EPITHELIAL CELL UR AURFX 0 /HPF (0-6); WBC, URINE AUTO RFX 0 /HPF (0-3)
== END 2017-03-01 00:55 | disposition home or self-care (01) ==
LOC: M ED 03-01 00:55
DX: R33.9 Retention of urine, unspecified (principal); K58.9 Irritable bowel syndrome, unspecified; M54.9 Dorsalgia, unspecified; N80.9 Endometriosis, unspecified; Z79.899 Other long term (current) drug therapy; Z91.030 Bee allergy status; Z91.010 Allergy to peanuts; Z91.013 Allergy to seafood; Z91.89 Other specified personal risk factors, not elsewhere classified; Z88.8 Allergy status to other drugs, medicaments and biological substances; Z88.6 Allergy status to analgesic agent; Z88.2 Allergy status to sulfonamides
CPT/HCPCS: 81001

== ENCOUNTER → 2017-03-01 | Outpatient (CLI) | payer MEDICARE, MEDICAID | LOC: M PAIN 13:45 | DX: R52 Pain, unspecified (principal); D18.02 Hemangioma of intracranial structures; G81.14 Spastic hemiplegia affecting left nondominant side; M79.1 Myalgia; Z79.891 Long term (current) use of opiate analgesic | CPT/HCPCS: G0463 ==

== ENCOUNTER → 2017-03-15 | Outpatient (CLI) | payer MEDICARE, MEDICAID ==
[~2017-03-15] MED LIST changes: -/ADVA50050; -/LAMO10TA; -ACET500C OR; -ALBU17IN INH; -AMBI5TAB OR; -AMITIZA PO; -ASPI81TA45 OR; -ATIV0.5T OR; -ATIV0.5T3 PO; -BACL10TA2 OR; -CARA1TAB2 PO; -CLAR5CHW; -CLON0.5T PO; -COLA100C2 OR; -COMBAER6 INH; -CYCL10TA3 PO; -CYMB60CA3 PO; -DIAZ2TAB; -DOXY150C PO; -DULO20CA; -EMLA2.5C EX; -EMLA2.5C EXT; -FLEXERIL; -FLEXERIL PO; -FLON0.05; -HYDR-3716 PO; -HYDR25TA8 OR; -IMIT100T; -IMIT6INJ IJ; -LAC-12LO3 TOP; -LEVOTAB10; -LIDO5DIS41 TD; -LISI10TA4 OR; -LORA10TA2 PO; -LORA2TA PO; -MAGN250T OR; -MAXA10TA17 OR; -MECL12.575 PO; -MIRALEX PO; -MIRAPEX; -NICO14DI3; -OMEP10CASR PO; -OMEP20TA7 OR; -PERC5TAB12 PO; -PERC5TAB8 OR; -PHEN 25 PO; -PRED20TAB PO; +PROHANCE 279.3MG/ML 5ML VIAL (A9576) As Ordered; -PROM25TA PO; -PROM50TA; -PROVIGIL; -REGL10TA6 PO; -ROBA500T; -SAVE50TA PO; -SIMV10TA2 OR; -STOOL SOFTNER PO; -TIZA4TAB OR; -TIZA4TAB3 PO; -TOLNAFTATE; -TRAM100T; -TRAM50TA2; -TRAM50TA2 OR; -TRAM50TA2 PO; -TRAZ-136 PO; -TRAZ50TA2 PO; -TYLENOL #3; -VALI5TAB; -VARE1TA OR; -VICO5TAB OR; -VIT D 2000 PO; -VITA-113 SL; -VITACAP31 OR; -XANA1TAB2 PO; -ZOFR4TAB3 PO; -clonidine PO; -emla cream TOP; -fentanyl patch TOP; -vitamin d3 PO
== END ==
LOC: M RAD 10:45
DX: Q28.3 Other malformations of cerebral vessels (principal)
CPT/HCPCS: A9576

== ENCOUNTER 2017-03-24 16:02 | Emergency (ER) | payer MEDICARE, MEDICAID ==
[2017-03-24 18:59] LABS: APPEARANCE, URINE CLOUDY (CLEAR); BACTERIA, URINE AUTO 2+ (NEGATIVE); BILIRUBIN, URINE AUTO NEGATIVE (NEGATIVE); BLOOD, URINE BLOOD 3+ (NEGATIVE); COLOR, URINE YELLOW (YELLOW); GLUCOSE, URINE (UA) AUTO NEGATIVE (NEGATIVE); KETONE, URINE AUTO NEGATIVE (NEGATIVE); LEUKOCYTE ESTERASE, URINE AUTO 3+ (NEGATIVE); MUCUS, URINE SMALL (NEGATIVE); NITRITE, URINE AUTO NEGATIVE (NEGATIVE); PROTEIN, URINE AUTO 1+ mg/dL (NEGATIVE); RBC, URINE AUTO 172 /HPF (0-3); SPECIFIC GRAVITY URINE AUTO 1.018 (1.002-1.035); SQUAMOUS EPITHELIAL CELL UR AU 0 /HPF (0-6); UROBILINOGEN, URINE AUTO 0.2 mg/dL (0.0-2.0); WBC, URINE AUTO TNTC /HPF (0-3)
[2017-03-24] MEDS: PHENAZOPYRIDINE 100 MG TAB PO (19:15)
[2017-03-24] MEDS: CEPHALEXIN 500 MG CAP PO (19:15)
== END 2017-03-24 19:39 | disposition home or self-care (01) ==
LOC: M ED 16:02
DX: N30.00 Acute cystitis without hematuria (principal); G43.909 Migraine, unspecified, not intractable, without status migrainosus; J45.909 Unspecified asthma, uncomplicated; N80.9 Endometriosis, unspecified; E11.9 Type 2 diabetes mellitus without complications; Z85.71 Personal history of Hodgkin lymphoma; F17.200 Nicotine dependence, unspecified, uncomplicated; Z79.899 Other long term (current) drug therapy; Z91.030 Bee allergy status; Z88.6 Allergy status to analgesic agent; Z88.8 Allergy status to other drugs, medicaments and biological substances; Z88.2 Allergy status to sulfonamides; Z91.89 Other specified personal risk factors, not elsewhere classified; Z91.010 Allergy to peanuts
CPT/HCPCS: 81001

== ENCOUNTER → 2017-04-03 | Outpatient (CLI) | payer MEDICARE, MEDICAID | LOC: M PAIN 13:30 | DX: G89.29 Other chronic pain (principal); D18.02 Hemangioma of intracranial structures; G81.14 Spastic hemiplegia affecting left nondominant side; M79.1 Myalgia; E78.5 Hyperlipidemia, unspecified; F41.9 Anxiety disorder, unspecified; F32.9 Major depressive disorder, single episode, unspecified; F43.10 Post-traumatic stress disorder, unspecified; K59.00 Constipation, unspecified; J45.909 Unspecified asthma, uncomplicated; K21.9 Gastro-esophageal reflux disease without esophagitis; G43.909 Migraine, unspecified, not intractable, without status migrainosus; F17.210 Nicotine dependence, cigarettes, uncomplicated; Z79.891 Long term (current) use of opiate analgesic; Z85.79 Personal history of other malignant neoplasms of lymphoid, hematopoietic and related tissues; Z92.21 Personal history of antineoplastic chemotherapy; Z79.899 Other long term (current) drug therapy; Z88.2 Allergy status to sulfonamides; Z88.8 Allergy status to other drugs, medicaments and biological substances; Z88.6 Allergy status to analgesic agent; Z91.030 Bee allergy status; Z91.010 Allergy to peanuts | CPT/HCPCS: G0463 ==

== ENCOUNTER → 2017-05-09 | Outpatient (REF) | payer MEDICARE, MEDICAID ==
[2017-05-09 13:17] LABS: APPEARANCE, URINE HAZY (CLEAR); BACTERIA, URINE AUTO NEGATIVE (NEGATIVE); BILIRUBIN, URINE AUTO NEGATIVE (NEGATIVE); BLOOD, URINE BLOOD NEGATIVE (NEGATIVE); COLOR, URINE YELLOW (YELLOW); GLUCOSE, URINE (UA) AUTO NEGATIVE (NEGATIVE); KETONE, URINE AUTO NEGATIVE (NEGATIVE); LEUKOCYTE ESTERASE, URINE AUTO TRACE (NEGATIVE); MUCUS, URINE SMALL (NEGATIVE); NITRITE, URINE AUTO NEGATIVE (NEGATIVE); PROTEIN, URINE AUTO NEGATIVE (NEGATIVE); RBC, URINE AUTO 5 /HPF (0-3); SPECIFIC GRAVITY URINE AUTO 1.017 (1.002-1.035); SQUAMOUS EPITHELIAL CELL UR AU 4 /HPF (0-6); UROBILINOGEN, URINE AUTO 0.2 mg/dL (0.0-2.0); WBC, URINE AUTO 1 /HPF (0-3)
== END ==
LOC: M SMT 12:53
DX: R33.9 Retention of urine, unspecified (principal)
CPT/HCPCS: 81001

== ENCOUNTER 2017-05-19 17:58 | Emergency (ER) | payer OTHER, MEDICAID, MEDICARE ==
[2017-05-19] MEDS: GABAPENTIN 300 MG CAP PO (22:00)
[2017-05-19] MEDS: PERCOCET 5MG/325MG TAB PO (22:00)
== END 2017-05-19 22:08 | disposition home or self-care (01) ==
LOC: M ED 17:58
DX: Z76.0 Encounter for issue of repeat prescription (principal); G89.29 Other chronic pain; M25.512 Pain in left shoulder; J45.909 Unspecified asthma, uncomplicated; I95.9 Hypotension, unspecified; G43.909 Migraine, unspecified, not intractable, without status migrainosus; K58.9 Irritable bowel syndrome, unspecified; N80.9 Endometriosis, unspecified; M79.7 Fibromyalgia; F41.9 Anxiety disorder, unspecified; F33.9 Major depressive disorder, recurrent, unspecified; Z85.71 Personal history of Hodgkin lymphoma; Z79.899 Other long term (current) drug therapy; Z88.2 Allergy status to sulfonamides; Z88.8 Allergy status to other drugs, medicaments and biological substances; Z91.010 Allergy to peanuts; Z91.013 Allergy to seafood; Z91.030 Bee allergy status
CPT/HCPCS: 73030

== ENCOUNTER 2017-05-29 13:45 | Emergency (ER) | payer OTHER, MEDICAID | END 2017-05-29 18:11 | disposition home or self-care (01) | LOC: M ED 13:45 | DX: R29.818 Other symptoms and signs involving the nervous system (principal); G93.9 Disorder of brain, unspecified; E11.9 Type 2 diabetes mellitus without complications; Z86.73 Personal history of transient ischemic attack (TIA), and cerebral infarction without residual deficits; G43.909 Migraine, unspecified, not intractable, without status migrainosus; E78.5 Hyperlipidemia, unspecified; M79.7 Fibromyalgia; Z86.59 Personal history of other mental and behavioral disorders; F17.200 Nicotine dependence, unspecified, uncomplicated; Z85.9 Personal history of malignant neoplasm, unspecified; Z79.899 Other long term (current) drug therapy; Z91.030 Bee allergy status; Z91.89 Other specified personal risk factors, not elsewhere classified; Z91.010 Allergy to peanuts; Z91.013 Allergy to seafood; Z88.8 Allergy status to other drugs, medicaments and biological substances; Z88.6 Allergy status to analgesic agent; Z88.2 Allergy status to sulfonamides | CPT/HCPCS: 70450 ==

== ENCOUNTER → 2017-07-12 | Outpatient (CLI) | payer OTHER, MEDICAID | LOC: M PAIN 10:15 | DX: M79.622 Pain in left upper arm (principal); D18.02 Hemangioma of intracranial structures; G81.14 Spastic hemiplegia affecting left nondominant side; M79.1 Myalgia; E78.5 Hyperlipidemia, unspecified; F41.9 Anxiety disorder, unspecified; F32.9 Major depressive disorder, single episode, unspecified; F43.10 Post-traumatic stress disorder, unspecified; F17.210 Nicotine dependence, cigarettes, uncomplicated; J30.9 Allergic rhinitis, unspecified; G43.909 Migraine, unspecified, not intractable, without status migrainosus; Z79.891 Long term (current) use of opiate analgesic; Z79.899 Other long term (current) drug therapy; Z88.1 Allergy status to other antibiotic agents; Z88.2 Allergy status to sulfonamides; Z88.6 Allergy status to analgesic agent; Z88.8 Allergy status to other drugs, medicaments and biological substances; Z91.030 Bee allergy status; Z91.040 Latex allergy status; Z91.010 Allergy to peanuts; Z85.71 Personal history of Hodgkin lymphoma; Z86.69 Personal history of other diseases of the nervous system and sense organs; Z91.5 Personal history of self-harm | CPT/HCPCS: G0463 ==

== ENCOUNTER → 2017-08-16 | Outpatient (CLI) | payer OTHER, MEDICAID | LOC: M PAIN 10:30 | DX: D18.02 Hemangioma of intracranial structures (principal); M54.81 Occipital neuralgia; M79.7 Fibromyalgia; G81.14 Spastic hemiplegia affecting left nondominant side; E78.5 Hyperlipidemia, unspecified; F41.9 Anxiety disorder, unspecified; F32.9 Major depressive disorder, single episode, unspecified; K59.00 Constipation, unspecified; J30.9 Allergic rhinitis, unspecified; H53.2 Diplopia; K21.9 Gastro-esophageal reflux disease without esophagitis; G43.909 Migraine, unspecified, not intractable, without status migrainosus; Z72.0 Tobacco use; Z79.899 Other long term (current) drug therapy; Z85.79 Personal history of other malignant neoplasms of lymphoid, hematopoietic and related tissues; Z88.2 Allergy status to sulfonamides; Z88.6 Allergy status to analgesic agent; Z88.8 Allergy status to other drugs, medicaments and biological substances; Z91.030 Bee allergy status; Z91.010 Allergy to peanuts; Z79.891 Long term (current) use of opiate analgesic | CPT/HCPCS: G0463 ==

== ENCOUNTER → 2017-08-22 | Outpatient (CLI) | payer OTHER, MEDICAID ==
[2017-08-22 12:14] LABS: BASO # 0.1 10^3/uL (0.0-0.2); BASO % 0.8 % (0.0-1.0); EOS # 0.1 10^3/uL (0.0-0.50); EOS % 1.4 % (0.0-3.0); HEMATOCRIT 44.1 % (36.0-47.0); HEMOGLOBIN 14.3 g/dl (12.0-15.5); IMMATURE GRANULOCYTE % 0.3 % (0-3.0); LYMPH # 2.7 10^3/uL (1.5-4.5); LYMPH % 31.9 % (24.0-44.0); MEAN CORPUSCULAR HEMOGLOBIN 31.8 pg (27.0-33.0); MEAN CORPUSCULAR HGB CONC 32.4 g/dl (32.0-36.5); MONO # 0.5 10^3/uL (0.0-0.8); MONO % 5.4 % (0.0-5.0); NEUTROPHILS # 5.2 10^3/uL (1.8-7.7); NEUTROPHILS % 60.2 % (36.0-66.0); PLATELET COUNT, AUTOMATED 265 10^3/uL (150-450); RED CELL DISTRIBUTION WIDTH 13.8 % (11.5-14.5); WHITE BLOOD COUNT 8.6 10^3/uL (4.0-10.0)
[2017-08-22 12:39] LABS: ERYTHROCYTE SEDIMENTATION RATE 10 mm/hr (0-20)
[2017-08-22 12:53] LABS: ALBUMIN 3.6 GM/DL (3.2-5.2); ALBUMIN/GLOBULIN RATIO 1.13 (1.00-1.93); ALKALINE PHOSPHATASE 66 U/L (45-117); ALT/SGPT 14 U/L (12-78); ANION GAP 8 MEQ/L (8-16); AST/SGOT 12 U/L (7-37); BILIRUBIN,TOTAL 0.2 MG/DL (0.2-1.0); BLOOD UREA NITROGEN 9 MG/DL (7-18); CALCIUM LEVEL 9.3 MG/DL (8.5-10.1); CARBON DIOXIDE LEVEL 29 MEQ/L (21-32); CHLORIDE LEVEL 107 MEQ/L (98-107); CREATININE FOR GFR 0.49 MG/DL (0.55-1.30); GLOMERULAR FILTRATION RATE > 60.0 (>58); GLUCOSE, FASTING 88 MG/DL (70-100); POTASSIUM SERUM 4.4 MEQ/L (3.5-5.1); SODIUM LEVEL 144 MEQ/L (136-145); TOTAL PROTEIN 6.8 GM/DL (6.4-8.2)
[2017-08-23 12:36] LABS: ALBUMIN % 60.8 % (55.8-66.1); ALPHA-1-GLOBULIN % 5.3 % (2.9-4.9); ALPHA-2-GLOBULINS % 12.6 % (7.1-11.8); BETA-1-GLOBULINS % 5.9 % (4.7-7.2); BETA-2-GLOBULINS % 4.1 % (3.2-6.5); GAMMA GLOBULIN % 11.3 % (11.1-18.8)
[2017-08-23 12:37] LABS: ALBUMIN 4.13 GM/DL (3.29-5.55); ALPHA-1-GLOBULINS 0.36 GM/DL (0.17-0.41); ALPHA-2-GLOBULINS 0.86 GM/DL (0.42-0.99); BETA-2-GLOBULINS 0.28 GM/DL (0.19-0.55); GAMMA GLOBULINS 0.77 GM/DL (0.65-1.58)
== END ==
LOC: M RAD 09:50
DX: M65.812 Other synovitis and tenosynovitis, left shoulder (principal)
CPT/HCPCS: 73221

== ENCOUNTER → 2017-09-08 | Outpatient (CLI) | payer OTHER, MEDICAID | LOC: M PAIN 09:30 | DX: D18.02 Hemangioma of intracranial structures (principal); M79.7 Fibromyalgia; M54.81 Occipital neuralgia; K59.00 Constipation, unspecified; E78.5 Hyperlipidemia, unspecified; F41.9 Anxiety disorder, unspecified; F32.9 Major depressive disorder, single episode, unspecified; F43.10 Post-traumatic stress disorder, unspecified; J30.81 Allergic rhinitis due to animal (cat) (dog) hair and dander; E11.9 Type 2 diabetes mellitus without complications; K21.9 Gastro-esophageal reflux disease without esophagitis; G43.909 Migraine, unspecified, not intractable, without status migrainosus; F17.210 Nicotine dependence, cigarettes, uncomplicated; Z79.891 Long term (current) use of opiate analgesic; Z79.899 Other long term (current) drug therapy; Z88.2 Allergy status to sulfonamides; Z91.030 Bee allergy status; Z91.010 Allergy to peanuts; Z88.8 Allergy status to other drugs, medicaments and biological substances; Z91.5 Personal history of self-harm | CPT/HCPCS: G0463 ==

== ENCOUNTER → 2017-10-14 | Outpatient (REF) | payer OTHER, MEDICAID | LOC: M LAB REF 17:13 | DX: N39.0 Urinary tract infection, site not specified (principal) ==

== ENCOUNTER → 2017-12-15 | Outpatient (CLI) | payer OTHER, MEDICAID | LOC: M PAIN 11:15 | DX: D18.02 Hemangioma of intracranial structures (principal); M79.7 Fibromyalgia; M54.81 Occipital neuralgia; Z92.21 Personal history of antineoplastic chemotherapy; E78.5 Hyperlipidemia, unspecified; F41.9 Anxiety disorder, unspecified; F32.9 Major depressive disorder, single episode, unspecified; F43.10 Post-traumatic stress disorder, unspecified; K59.09 Other constipation; J44.9 Chronic obstructive pulmonary disease, unspecified; J45.909 Unspecified asthma, uncomplicated; K21.9 Gastro-esophageal reflux disease without esophagitis; G43.909 Migraine, unspecified, not intractable, without status migrainosus; Z79.899 Other long term (current) drug therapy; F17.210 Nicotine dependence, cigarettes, uncomplicated; Z88.2 Allergy status to sulfonamides; Z85.79 Personal history of other malignant neoplasms of lymphoid, hematopoietic and related tissues; Z91.040 Latex allergy status; Z91.030 Bee allergy status; Z88.8 Allergy status to other drugs, medicaments and biological substances; Z88.6 Allergy status to analgesic agent; Z91.010 Allergy to peanuts; Z79.891 Long term (current) use of opiate analgesic | CPT/HCPCS: G0463 ==

== ENCOUNTER → 2018-03-15 | Outpatient (REF) | payer OTHER, MEDICAID ==
[~2018-03-15] MED LIST changes: +/ADVA50050; +/LAMO10TA; +ACET500C OR; +ALBU17IN INH; +AMBI5TAB OR; +AMITIZA PO; +ASPI81TA45 OR; +ATIV0.5T OR; +ATIV0.5T3 PO; +BACL10TA2 OR; +CARA1TAB2 PO; +CIPR-249 PO; +CLAR5CHW; +CLON0.5T PO; +COLA100C2 OR; +COMBAER6 INH; +CYCL10TA3 PO; +CYMB60CA3 PO; +DIAZ2TAB; +DOXY150C PO; +DULO20CA; +EMLA2.5C EX; +EMLA2.5C EXT; +FENT12DI8 TD; +FENT12PA TOP; +FLEXERIL; +FLEXERIL PO; +FLON0.05; +GABA-843; +GABA600T4 PO; +HYDR-3716 PO; +HYDR25TA8 OR; +IMIT100T; +IMIT6INJ IJ; +KEFL500C17 PO; +LAC-12LO3 TOP; +LEVOTAB10; +LIDO5DIS41 TD; +LISI10TA4 OR; +LORA10TA2 PO; +LORA2TA PO; +MAGN250T OR; +MAXA10TA17 OR; +MECL12.575 PO; +MIRALEX PO; +MIRAPEX; +MUCI600T31 PO; +NICO14DI3; +NITR100C2; +OMEP10CASR PO; +OMEP20TA7 OR; +ONDA8TAB8; +OXYC1TAB23; +PERC5TAB12 PO; +PERC5TAB8 OR; +PHEN 25 PO; +PRED20TAB PO; -PROHANCE 279.3MG/ML 5ML VIAL (A9576) As Ordered; +PROM25TA PO; +PROM25TA12; +PROM50TA; +PROVIGIL; +PYRI1TAB5 PO; +REGL10TA6 PO; +ROBA500T; +SAVE50TA PO; +SIMV10TA2 OR; +STOOL SOFTNER PO; +TIZA4TAB OR; +TIZA4TAB3 PO; +TOLNAFTATE; +TRAM100T; +TRAM50TA2; +TRAM50TA2 OR; +TRAM50TA2 PO; +TRAZ-163 PO; +TRAZ1TAB14; +TRAZ50TA2 PO; +TYLENOL #3; +VALI5TAB; +VARE1TA OR; +VICO5TAB OR; +VIT D 2000 PO; +VITA-113 SL; +VITACAP31 OR; +XANA1TAB2 PO; +ZOFR4TAB14 PO; +clonidine PO; +emla cream TOP; +fentanyl patch TOP; +vitamin d3 PO
[2018-03-15 13:02] LABS: HEMATOCRIT 44.9 % (36.0-47.0); HEMOGLOBIN 14.7 g/dl (12.0-15.5); MEAN CORPUSCULAR HEMOGLOBIN 31.8 pg (27.0-33.0); MEAN CORPUSCULAR HGB CONC 32.7 g/dl (32.0-36.5); MEAN CORPUSCULAR VOLUME 97.2 fl (80.0-96.0); PLATELET COUNT, AUTOMATED 321 10^3/uL (150-450); RED BLOOD COUNT 4.62 10^6/uL (4.00-5.40); WHITE BLOOD COUNT 11.1 10^3/uL (4.0-10.0)
[2018-03-15 13:30] LABS: HEMOGLOBIN A1c 5.5 %
[2018-03-15 13:33] LABS: ALBUMIN 3.9 GM/DL (3.2-5.2); ALT/SGPT 16 U/L (12-78); BILIRUBIN,TOTAL 0.3 MG/DL (0.2-1.0); BLOOD UREA NITROGEN 9 MG/DL (7-18); CALCIUM LEVEL 9.1 MG/DL (8.5-10.1); CARBON DIOXIDE LEVEL 28 MEQ/L (21-32); CHLORIDE LEVEL 104 MEQ/L (98-107); CHOLESTEROL LEVEL 248 MG/DL (<200); CHOLESTEROL RISK RATIO 5.391 (<5); CREATININE FOR GFR 0.61 MG/DL (0.55-1.30); FOLATE 9.6 NG/ML (>5.4); FREE T4 1.38 NG/DL (0.76-1.46); GLOMERULAR FILTRATION RATE > 60.0 (>58); GLUCOSE, FASTING 88 MG/DL (70-100); HDL CHOLESTEROL 46 MG/DL (>40); LDL CHOLESTEROL 174 MG/DL (<100); NON-HDL-C 202 MG/DL; POTASSIUM SERUM 4.5 MEQ/L (3.5-5.1); SODIUM LEVEL 139 MEQ/L (136-145); TOTAL PROTEIN 6.9 GM/DL (6.4-8.2); TRIGLYCERIDES LEVEL 142 MG/DL (<150)
[2018-03-16 11:16] LABS: VITAMIN B12 LEVEL 632 PG/ML (232-1245)
== END ==
LOC: M SFHCADAM 10:47
PROVIDERS: ATTEND Family Medicine
DX: D75.89 Other specified diseases of blood and blood-forming organs (principal); E11.9 Type 2 diabetes mellitus without complications; E78.5 Hyperlipidemia, unspecified
CPT/HCPCS: 80053; 80061; 82607; 82746; 83036; 84439; 84443; 85027; G0463

== ENCOUNTER → 2018-04-05 | Outpatient (REF) | payer OTHER, MEDICAID ==
[2018-04-06 14:22] LABS: Lyme Disease IgG/IgM Antibodie <0.91 ISR (0.00-0.90); Lyme Disease IgM Ab Quantitati <0.80 index (0.00-0.79)
== END ==
LOC: M SFHCADAM 10:17
PROVIDERS: ATTEND Family Medicine
DX: R21 Rash and other nonspecific skin eruption (principal)
CPT/HCPCS: 86617; G0463

== ENCOUNTER → 2018-05-08 | Outpatient (REF) | payer OTHER, MEDICAID ==
[~2018-05-08] MED LIST changes: -/ADVA50050; -/LAMO10TA; +ADVA1AER2; +CYMB1CAP4; -DULO20CA; +FENT12DI12 TOP; -FENT12PA TOP; +LAMI1TAB7; +PROM-190 PO; -PROM25TA PO
[2018-05-09 10:37] LABS: RUBELLA IgG QUALITATIVE IMMUNE (IMMUNE)
== END ==
LOC: M SFHCADAM 10:00
PROVIDERS: ATTEND Family Medicine
DX: Z78.9 Other specified health status (principal)
CPT/HCPCS: 86580; 86762; 86765; 99406; G0463

== ENCOUNTER → 2018-07-13 | Outpatient (REF) | payer OTHER, MEDICAID | LOC: M SFHCADAM 08:26 | PROVIDERS: ATTEND Family Medicine | DX: K90.41 Non-celiac gluten sensitivity (principal) ==

== ENCOUNTER → 2018-10-12 | Outpatient (CLI) | payer OTHER, MEDICAID ==
--- NOTE | 2018-10-12 16:46 | REP ---
Clinical: Lumbago and right-sided sciatica . Technique: AP, lateral, bilateral oblique, and coned-down views. Findings: Alignment and lordosis is maintained. The vertebral bodies including transverse process and spinous processes are intact and there is no evidence for acute fracture / compression injury or subluxation. Mild hypertrophic facet changes and disc space narrowing at L5-S1 noted. Impression: Mild degenerative changes at L5-S1. Electronically Signed by Chas Walter MD 10/12/2018 04:38 P
== END ==
LOC: M ADAMS 16:04
PROVIDERS: ATTEND Physician Assistant Medical
DX: M51.37 Other intervertebral disc degeneration, lumbosacral region (principal); M54.41 Lumbago with sciatica, right side
CPT/HCPCS: 72110; G0463

== ENCOUNTER → 2019-03-12 | Outpatient (REF) | payer OTHER, MEDICAID ==
[~2019-03-12] MED LIST changes: -TRAZ-163 PO; +TRAZ-257 PO
[2019-03-12 13:11] LABS: HEMATOCRIT 49.5 % (36.0-47.0); HEMOGLOBIN 15.7 g/dl (12.0-15.5); MEAN CORPUSCULAR HEMOGLOBIN 31.4 pg (27.0-33.0); MEAN CORPUSCULAR HGB CONC 31.7 g/dl (32.0-36.5); PLATELET COUNT, AUTOMATED 289 10^3/uL (150-450); WHITE BLOOD COUNT 10.7 10^3/uL (4.0-10.0)
[2019-03-12 13:32] LABS: ALBUMIN 3.9 GM/DL (3.2-5.2); ALT/SGPT 19 U/L (12-78); AMYLASE 65 U/L (25-115); BILIRUBIN,TOTAL 0.5 MG/DL (0.2-1.0); BLOOD UREA NITROGEN 8 MG/DL (7-18); CALCIUM LEVEL 9.8 MG/DL (8.5-10.1); CARBON DIOXIDE LEVEL 31 MEQ/L (21-32); CHLORIDE LEVEL 106 MEQ/L (98-107); CREATININE FOR GFR 0.61 MG/DL (0.55-1.30); GLOMERULAR FILTRATION RATE > 60.0 (>58); GLUCOSE, FASTING 91 MG/DL (70-100); LIPASE 117 U/L (73-393); POTASSIUM SERUM 4.4 MEQ/L (3.5-5.1); SODIUM LEVEL 142 MEQ/L (136-145); TOTAL PROTEIN 7.2 GM/DL (6.4-8.2)
== END ==
LOC: M SFHCADAM 09:08
PROVIDERS: ATTEND Family Medicine
DX: R10.10 Upper abdominal pain, unspecified (principal)
CPT/HCPCS: 80053; 82150; 83690; 85027; G0463

== ENCOUNTER → 2019-03-22 | Outpatient (CLI) | payer OTHER, MEDICAID ==
--- NOTE | 2019-03-22 09:23 | REP ---
Clinical: Upper abdominal pain. Technique: Real time luis scale and color evaluation using curved array transducer. Findings: Liver, spleen, and pancreas are normal in contour, size, echogenicity without focal hepatic, splenic or pancreatic lesion identified. Spleen measures 7.6 cm maximal length. The gallbladder is normal and without gallstones, wall thickening, or pericholecystic fluid. No biliary ductal dilatation is appreciated and the common bile duct measures 3.3 mm diameter. Left kidney is normal in appearance without hydronephrosis and measures 10.5 x 5.3 x 5.4 cm. Right kidney measures 13.2 x 5.3 x 3.3 cm without hydronephrosis and includes 4.1 cm solid lower pole vascular mass and 9 mm mid/upper pole cortical cyst. No perinephric stranding noted. Abdominal aorta is normal and measures 1.7 cm maximal diameter. No ascites. Impression: 1. 4.1 cm solid right renal mass. Finding represents renal cell carcinoma unless proven otherwise. Pre and postcontrast CT of the abdomen and pelvis is recommended along with urology consultation. Electronically Signed by Chas Walter MD 03/22/2019 09:15 A
== END ==
LOC: M RAD 08:25
PROVIDERS: ATTEND Family Medicine
DX: R10.10 Upper abdominal pain, unspecified (principal); N28.1 Cyst of kidney, acquired; N28.89 Other specified disorders of kidney and ureter

== ENCOUNTER → 2019-04-11 | Outpatient (CLI) | payer OTHER, MEDICAID ==
--- NOTE | 2019-04-11 09:15 | REPVR ---
PROCEDURE INFORMATION: Exam: CT Abdomen And Pelvis Without Contrast Exam date and time: 04/11/2019 8:19 AM Age: 43 years old Clinical indication: Abnormal findings; Mass, lump, or swelling; Kidney, right; Additional info: Lesion of right [place] kidney TECHNIQUE: Imaging protocol: Computed tomography of the abdomen and pelvis without contrast. Radiation optimization: All CT scans at this facility use at least one of these dose optimization techniques: automated exposure control; mA and/or kV adjustment per patient size (includes targeted exams where dose is matched to clinical indication); or iterative reconstruction. COMPARISON: ABD COMPLETE US 03/22/2019 8:43 AM FINDINGS: Lungs: Bilateral dependent atelectasis. Linear atelectasis or scarring in the right lower lobe. Liver: Mild hepatomegaly. Gallbladder and bile ducts: Normal. No calcified stones. No ductal dilation. Pancreas: Normal. No ductal dilation. Spleen: Normal. No splenomegaly. Adrenals: Normal. No mass. Kidneys and ureters: Indeterminate exophytic 4 cm lesion projecting off the inferior pole of the right kidney corresponds to solid vascular mass seen on the recent ultrasound. Stomach and bowel: Unremarkable. No obstruction. No mucosal thickening. Appendix: Status post appendectomy. Intraperitoneal space: Unremarkable. No free air. No significant fluid collection. Vasculature: Atherosclerotic disease of the abdominal aorta. Lymph nodes: Unremarkable. No enlarged lymph nodes. Bladder: Unremarkable as visualized. Reproductive: Status post hysterectomy and bilateral salpingo-oophorectomy. Bones/joints: Unremarkable. No acute fracture. Soft tissues: Unremarkable. IMPRESSION: Indeterminate exophytic 4 cm lesion projecting off the inferior pole of the right kidney corresponds to solid vascular mass seen on the recent ultrasound. Electronically signed by: Monty Xavier On 04/11/2019 09:15:04 AM
== END ==
LOC: M RAD 08:13
PROVIDERS: ATTEND Family Medicine
DX: N28.9 Disorder of kidney and ureter, unspecified (principal); R16.0 Hepatomegaly, not elsewhere classified; Z90.49 Acquired absence of other specified parts of digestive tract

== ENCOUNTER → 2019-04-12 | Outpatient (CLI) | payer OTHER, MEDICAID ==
[~2019-04-12] MED LIST changes: +DOCU100C16 PO; +FIOR1CAP PO; +LEVO250T12 PO; -LEVOTAB10; +LEVOTAB10 PO; +NICO1PAT15 TD; -ONDA8TAB8; +ONDA8TAB8 SL; -PROM25TA12; +PROM25TA12 PO
--- NOTE | 2019-04-12 19:20 | REP ---
Bilateral rib series: Nine views including PA chest. History: Rib pain. No recent injury. Comparison chest x-ray: May 20, 2014. Findings: PA chest radiograph is normal. There is no evidence of pneumothorax or hydrothorax. Mediastinum is not widened. Heart size is normal. Lung krishna are clear. Multiple views of the left and right ribcage demonstrate the small 9 mm soft tissue opacity in the subclavicular fossa on the right seen previously. This is unchanged. No bony destructive rib lesion is seen. No rib fracture is appreciated. Impression: No bony destructive rib lesion or fracture seen. No active disease in the chest. Electronically Signed by Yasir Murcia MD 04/12/2019 07:58 P
--- NOTE | 2019-04-12 19:21 | REP ---
Thoracic spine series: Two views. History: Radiculopathy. Findings: Thoracic vertebral body heights are preserved. Alignment is normal. Pedicles and posterior elements are intact. No paravertebral soft-tissue mass or swelling is seen. There are minimal discogenic spurs in the mid thoracic spine anteriorly. Impression: No acute abnormality. Minimal discogenic spurring. Electronically Signed by Yasir Murcia MD 04/12/2019 07:58 P
--- NOTE | 2019-04-12 19:22 | REP ---
Lumbar spine series: Three views. History: Radiculopathy. Comparison study: October 12, 2018. Findings: There are surgical sutures in the pelvis bilaterally, unchanged. Bowel gas pattern is normal. Lumbar vertebral body heights are preserved. Alignment is normal. There is no evidence of spondylolysis or spondylolisthesis. Psoas margins are symmetric. There is a bone island in the left iliac bone unchanged. Sacrum and SI joints are intact. Impression: Negative lumbar spine radiographs. Electronically Signed by Yasir Murcia MD 04/12/2019 07:58 P
== END ==
LOC: M ADAMS 15:37
PROVIDERS: ATTEND Physician Assistant
DX: R07.81 Pleurodynia (principal); M54.17 Radiculopathy, lumbosacral region
CPT/HCPCS: 71111; 72070; 72100; G0463

== ENCOUNTER → 2019-04-12 | Outpatient (REF) | payer OTHER, MEDICAID ==
[~2019-04-12] MED LIST changes: -DOCU100C16 PO; -FIOR1CAP PO; -LEVO250T12 PO; +LEVOTAB10; -LEVOTAB10 PO; -NICO1PAT15 TD; +ONDA8TAB8; -ONDA8TAB8 SL; +PROM25TA12; -PROM25TA12 PO
[2019-04-12 19:02] LABS: BASO # 0.1 10^3/uL (0.0-0.2); BASO % 0.5 % (0.0-1.0); EOS # 0.1 10^3/uL (0.0-0.5); EOS % 1.1 % (0.0-3.0); HEMATOCRIT 48.3 % (36.0-47.0); HEMOGLOBIN 15.4 g/dl (12.0-15.5); MEAN CORPUSCULAR HEMOGLOBIN 31.4 pg (27.0-33.0); MEAN CORPUSCULAR HGB CONC 31.9 g/dl (32.0-36.5); MEAN CORPUSCULAR VOLUME 98.6 fl (80.0-96.0); MONO # 0.6 10^3/uL (0.0-0.8); MONO % 5.8 % (0.0-5.0); NEUTROPHILS # 5.7 10^3/uL (1.5-8.5); NEUTROPHILS % 60.2 % (36.0-66.0); PLATELET COUNT, AUTOMATED 280 10^3/uL (150-450); WHITE BLOOD COUNT 9.4 10^3/uL (4.0-10.0)
[2019-04-12 19:12] LABS: ALBUMIN 4.1 GM/DL (3.2-5.2); ALT/SGPT 18 U/L (12-78); BILIRUBIN,TOTAL 0.1 MG/DL (0.2-1.0); BLOOD UREA NITROGEN 12 MG/DL (7-18); C REACTIVE PROTEIN QUANTITATIV < 0.30 MG/DL (0.00-0.30); CALCIUM LEVEL 9.3 MG/DL (8.5-10.1); CARBON DIOXIDE LEVEL 29 MEQ/L (21-32); CHLORIDE LEVEL 105 MEQ/L (98-107); CREATININE FOR GFR 0.66 MG/DL (0.55-1.30); GLOMERULAR FILTRATION RATE > 60.0 (>58); GLUCOSE, FASTING 78 MG/DL (70-100); POTASSIUM SERUM 3.8 MEQ/L (3.5-5.1); SODIUM LEVEL 140 MEQ/L (136-145); TOTAL PROTEIN 7.1 GM/DL (6.4-8.2)
[2019-04-12 20:43] LABS: ERYTHROCYTE SEDIMENTATION RATE 5 mm/hr (0-20)
== END ==
LOC: M SFHCADAM 15:27
PROVIDERS: ATTEND Physician Assistant
DX: R07.81 Pleurodynia (principal); M54.17 Radiculopathy, lumbosacral region

== ENCOUNTER → 2019-04-16 | Outpatient (REF) | payer OTHER, MEDICAID ==
[~2019-04-16] MED LIST changes: +DOCU100C16 PO; +FIOR1CAP PO; +LEVO250T12 PO; -LEVOTAB10; +LEVOTAB10 PO; +NICO1PAT15 TD; -ONDA8TAB8; +ONDA8TAB8 SL; -PROM25TA12; +PROM25TA12 PO
[2019-04-16 13:43] LABS: APPEARANCE, URINE CLEAR (CLEAR); BACTERIA, URINE AUTO 1+ (NEGATIVE); BILIRUBIN, URINE AUTO NEGATIVE (NEGATIVE); BLOOD, URINE BLOOD 1+ (NEGATIVE); COLOR, URINE YELLOW (YELLOW); GLUCOSE, URINE (UA) AUTO NEGATIVE (NEGATIVE); KETONE, URINE AUTO NEGATIVE (NEGATIVE); LEUKOCYTE ESTERASE, URINE AUTO NEGATIVE (NEGATIVE); NITRITE, URINE AUTO NEGATIVE (NEGATIVE); PROTEIN, URINE AUTO NEGATIVE (NEGATIVE); RBC, URINE AUTO 1 /HPF (0-3); SPECIFIC GRAVITY URINE AUTO 1.005 (1.002-1.035); SQUAMOUS EPITHELIAL CELL UR AU 0 /HPF (0-6); UROBILINOGEN, URINE AUTO 0.2 mg/dL (0.0-2.0); WBC, URINE AUTO 0 /HPF (0-3)
[2019-04-16 13:49] LABS: HEMATOCRIT 48.5 % (36.0-47.0); HEMOGLOBIN 15.2 g/dl (12.0-15.5); MEAN CORPUSCULAR HEMOGLOBIN 31.1 pg (27.0-33.0); MEAN CORPUSCULAR HGB CONC 31.3 g/dl (32.0-36.5); MEAN CORPUSCULAR VOLUME 99.2 fl (80.0-96.0); PLATELET COUNT, AUTOMATED 271 10^3/uL (150-450); RED BLOOD COUNT 4.89 10^6/uL (4.00-5.40); WHITE BLOOD COUNT 10.5 10^3/uL (4.0-10.0)
[2019-04-16 13:53] LABS: INR 1.04; PROTHROMBIN TIME 13.3 SECONDS (11.8-14.0)
[2019-04-16 13:54] LABS: PARTIAL THROMBOPLASTIN TIME 32.6 SECONDS (25.0-38.4)
[2019-04-16 14:22] LABS: BLOOD UREA NITROGEN 11 MG/DL (7-18); CALCIUM LEVEL 9.6 MG/DL (8.5-10.1); CARBON DIOXIDE LEVEL 29 MEQ/L (21-32); CHLORIDE LEVEL 107 MEQ/L (98-107); CREATININE FOR GFR 0.63 MG/DL (0.55-1.30); GLOMERULAR FILTRATION RATE > 60.0 (>58); GLUCOSE, FASTING 80 MG/DL (70-100); POTASSIUM SERUM 4.7 MEQ/L (3.5-5.1); SODIUM LEVEL 142 MEQ/L (136-145)
== END ==
LOC: M LABSMT 11:28 → M SFHCADAM 11:30
PROVIDERS: ATTEND Nurse Practitioner Women's Health
DX: Z01.818 Encounter for other preprocedural examination (principal); N28.89 Other specified disorders of kidney and ureter
CPT/HCPCS: 80048; 81001; 85027; 85610; 85730; 87088; 87186; G0463

== ENCOUNTER 2019-05-01 05:54 | Inpatient (IN) | payer OTHER, MEDICAID ==
[~2019-05-01] VITALS: Ht 152.4 cm; Wt 57.6 kg
[~2019-05-01 05:54] MED LIST changes: -DOCU100C16 PO
[2019-05-01] MEDS ORDERED: LR 1,000 ML IV ONE (06:00)
[2019-05-01] MEDS ORDERED: ceFAZolin SOD 2 GM in IV 1 EA IV ONE (06:00)
[2019-05-01] MEDS ORDERED: fentaNYL 250 MCG/5 ML INJECTION (J3010) As Ordered ONE (06:46)
[2019-05-01] MEDS ORDERED: MIDAZOLAM INJ 2 MG/2 ML VIAL (J2250) As Ordered ONE (06:46)
[2019-05-01] MEDS ORDERED: ACETAMINOPHEN 1000MG 100ML IV BTL (OFIRMEV) (J0131 PER 10MG) As Ordered ONE (06:47)
[2019-05-01] MEDS ORDERED: SUGAMMADEX SODIUM 500 MG/5 ML VIAL (BRIDION) As Ordered ONE (06:47)
[2019-05-01] MEDS ORDERED: ONDANSETRON 4MG/2ML VIAL (J2405) As Ordered ONE (06:47)
[2019-05-01] MEDS ORDERED: ePHEDrine SULFATE 25 MG/5 ML(5MG/ML) SYRINGE As Ordered ONE (06:47)
[2019-05-01] MEDS ORDERED: ROCURONIUM BROMIDE 50 MG/5 ML VIAL As Ordered ONE ×2 (06:47→09:05)
[2019-05-01] MEDS ORDERED: propofoL 200 MG/20 ML VIAL As Ordered ONE (06:47)
[2019-05-01] MEDS ORDERED: PHENYLephrine HCL 500 MCG/5 ML (100MCG/ML) SYRINGE (J2370) As Ordered ONE (06:47)
[2019-05-01] MEDS ORDERED: LIDOCAINE 2% INJ 100 MG/5 ML SDV (FOR ANES.) As Ordered ONE (06:47)
[2019-05-01] MEDS ORDERED: dexameTHASONE 4 MG/ML 1ML VIAL (J1100) As Ordered ONE (06:48)
[2019-05-01] MEDS ORDERED: LIDOCAINE 1% SDV INJ 30 ML VIAL As Ordered ONE (06:58)
[2019-05-01] MEDS ORDERED: BUPIVACAINE HCL 0.25% 30ML VIAL As Ordered ONE (06:59)
[2019-05-01] MEDS ORDERED: ONDANSETRON 4MG/2ML VIAL (J2405) IV PRN ×2 (07:30→11:15)
[2019-05-01] MEDS ORDERED: PERCOCET 5MG/325MG TAB PO PRN (07:30)
[2019-05-01] MEDS ORDERED: MANNITOL 25% 12.5 GM/50 ML VIAL (J2150) As Ordered ONE (08:31)
[2019-05-01] MEDS ORDERED: HYDROmorphone HCL 2 MG/ML 1ML VIAL (J1170) As Ordered ONE (09:32)
[2019-05-01] MEDS ORDERED: HYDROMORPHONE HCL 0.5 MG/ 0.5 ML SYRINGE (J1170 PER 1) IV PRN (11:15)
[2019-05-01] MEDS ORDERED: LR 1,000 ML IV SCH (11:15)
[2019-05-01] MEDS ORDERED: MEPERIDINE INJ 25 MG/ML VIAL (J2175) As Ordered ONE (11:24)
[2019-05-01 11:29] LABS: HEMATOCRIT 46.1 % (36.0-47.0); HEMOGLOBIN 14.7 g/dl (12.0-15.5); MEAN CORPUSCULAR HEMOGLOBIN 31.5 pg (27.0-33.0); MEAN CORPUSCULAR HGB CONC 31.9 g/dl (32.0-36.5); MEAN CORPUSCULAR VOLUME 98.9 fl (80.0-96.0); PLATELET COUNT, AUTOMATED 235 10^3/uL (150-450); RED BLOOD COUNT 4.66 10^6/uL (4.00-5.40); WHITE BLOOD COUNT 13.3 10^3/uL (4.0-10.0)
[2019-05-01] MEDS: MEPERIDINE INJ 25 MG/ML VIAL (J2175) IV PRN ×2 (11:30→11:35)
[2019-05-01] MEDS: fentaNYL 100 MCG/2 ML INJECTION (J3010) IV PRN ×4 (11:40→11:55)
[2019-05-01 11:44] LABS: BLOOD UREA NITROGEN 9 MG/DL (7-18); CALCIUM LEVEL 8.5 MG/DL (8.5-10.1); CARBON DIOXIDE LEVEL 26 MEQ/L (21-32); CHLORIDE LEVEL 106 MEQ/L (98-107); GLOMERULAR FILTRATION RATE > 60.0 (>58); GLUCOSE, FASTING 122 MG/DL (70-100); POTASSIUM SERUM 4.7 MEQ/L (3.5-5.1); SODIUM LEVEL 138 MEQ/L (136-145)
[2019-05-01] MEDS: diphenhydrAMINE INJ 50MG/ML VIAL (J1200) IV PRN ×2 (11:45→11:50)
[2019-05-01] MEDS ORDERED: diphenhydrAMINE INJ 50MG/ML VIAL (J1200) As Ordered ONE (11:48)
--- NOTE | 2019-05-01 11:51 | ROOPDOC ---
[facility] Report Of Operation Report of Operation DATE OF PROCEDURE: 05/01/19 PREPROCEDURE DIAGNOSES: Right Renal Neoplasm. POSTPROCEDURE DIAGNOSES: Right Renal Neoplasm. PROCEDURE: Right Robotic-assisted Laparoscopic Partial Nephrectomy with Intraoperative Ultrasound for Tumor Mapping. SURGEON: Rosemary Car MD SUPERVISOR FIREWORKS ASSEMBLY: Deya Cobb NP ANESTHESIA: General OPERATIVE INDICATIONS: This is a 43 year old female with a 4cm enhancing solid right renal neoplasm concerning for malignancy. She was brought to the operating room today for treatment. DESCRIPTION OF PROCEDURE: The patient was brought to the operating room and general anesthesia was induced. Prophylactic antibiotics were infused. A Mccabe catheter was placed under sterile conditions. The patient was then placed in the left lateral decubitus position. All pressure points were appropriately padded and an axillary roll was placed. She was secured to the table with tape. The patient was then prepped and draped in the usual sterile fashion. The initial incision was for an 8mm port in line with the 11th rib along the lateral rectus margin. A Veress needle was then utilized to achieve the pneumoperitoneum. An 8mm port was then placed in through this incision and through which the camera was inserted. There were no injuries from Veress needle placement or initial trocar placement. The remaining ports were then placed under vision. The right hand robotic port was placed along the costal margin in line with the camera port. A 5 mm port was placed just inferior to the xyphoid for access for a liver retractor. Two left robotic ports were placed with one just inferior to the camera port, and the other between the anterior-superior iliac spine and the umbilicus. A 12mm assistant merchandiser port was placed in between the camera port and the more cephalad left hand robotic port. The robot was then docked. We started by lifting up the liver with a laparoscopic locking Allis clamp. Next the right colon was dissected off of Gerota's fascia. We then Kocherized the duodenum. At this point the inferior vena cava (IVC) was identified. The patient had 1 right renal artery and it was readily identified as it coursed anterior to the IVC. It was carefully dissected. Next I had our applications chemist administer 12.5g of mannitol. Gerota's fascia was then opened and I defatted the kidney. On the inferior aspect of the kidney the tumor was seen. It was mostly exophytic. Ultrasound was then utilized to chip the boundaries of the mass. Next 2 bulldog clamps were placed on the renal artery and we began resecting the mass. The mass was resected completely and it appeared that we had a good margin. Once the mass was removed, the renorrhaphy was performed first by ligating all vessels in the base of resection with a 2-0 vicryl suture using figure of eight stitches. The capsule of the kidney was then reapproximated using 0-vicryl suture with Weck clips to cinch down the suture. Once this was done the clamps were removed and hemostasis was excellent. The warm ischemia time was 24 minutes. Next Larissa was applied to the resection bed and the tumor was placed in an endocatch bag. A Clint Gill drain was positioned just medial to the kidney. The liver retractor was then removed and the robot was undocked after confirming hemostasis within the abdomen. The assistant merchandiser port was then extended at the skin level and then at the fascia. The specimen was then removed in the endocatch bag. The fascia of the extraction site was then closed with a running #0 vicryl suture. At this point, the abdomen was reinsufflated and we looked back in with the camera and there was no bleeding. At this point, all the incisions were thoroughly irrigated. We then closed the skin of each site using a running #4-0 subcuticular Monocryl stitch. The Clint Gill drain was secured to the skin using #3-0 Ethilon suture. Local anesthetic was then applied to each incision and Dermabond was then applied and this marked the conclusion of the procedure. The patient was then taken out of the left lateral decubitus position, awakened from anesthesia and transported to the recovery room in stable condition. ESTIMATED BLOOD LOSS: 150mL INTRAOPERATIVE COMPLICATIONS: None SPECIMENS: Right renal neoplasm WARM ISCHEMIA TIME: 24 minutes NORMAL RIGHT RENAL PARENCHYMA SPARED: 95% PLAN: The patient will be admitted to the hospital postoperatively and she will be discharged home once her renal function is stable and she is tolerating a regular diet. ROSEMARY CAR MD May 01, 2019 11:51
[2019-05-01] MEDS ORDERED: diphenhydrAMINE INJ 50MG/ML VIAL (J1200) IV ONE (12:00)
[2019-05-01] MEDS: NS 1,000 ML IV SCH ×2 (12:23→21:20)
[2019-05-01] MEDS: oxyCODONE 5MG TAB PO PRN ×2 (12:28→13:40)
[2019-05-01] MEDS ORDERED: oxyCODONE 5MG TAB As Ordered ONE ×2 (12:28→13:36)
[2019-05-01] MEDS ORDERED: METOCLOPRAMIDE INJ 10MG/2ML VIAL (J2765) As Ordered ONE (13:30)
[2019-05-01] MEDS ORDERED: METOCLOPRAMIDE INJ 10MG/2ML VIAL (J2765) IV ONE (14:00)
[2019-05-01 14:05] VITALS: BP 106/66
[2019-05-01] MEDS: DOCUSATE SODIUM 100 MG CAP PO SCH ×2 (15:11→20:02)
[2019-05-01] MEDS: ceFAZolin SOD 1 GM in D5W MINI-BAG PLUS 50 ML IV SCH ×2 (16:18→23:45)
[2019-05-01] MEDS: PERCOCET 5MG/325MG TAB PO PRN (16:23)
[2019-05-01] MEDS: NICOTINE 14 MG/24 HR TRANSDERMAL TD SCH (17:16)
[2019-05-01 18:00] VITALS: BP 108/60
[2019-05-01] MEDS: MORPHINE 2 MG/ML 1ML VIAL (J2270) IV PRN ×2 (18:40→23:45)
[2019-05-01] MEDS: ACETAMINOPHEN TAB 650MG DOSE (2X325MG) PO PRN (20:17)
[2019-05-01] MEDS ORDERED: SIMETHICONE 80 MG CHEW TAB PO PRN (21:15)
[2019-05-01 22:00] VITALS: BP 111/58
[2019-05-02] MEDS: PERCOCET 5MG/325MG TAB PO PRN (00:24)
[2019-05-02 02:00] VITALS: BP 108/59
[2019-05-02] MEDS: NS 1,000 ML IV SCH (02:47)
[2019-05-02] MEDS: MORPHINE 2 MG/ML 1ML VIAL (J2270) IV PRN (02:59)
[2019-05-02 06:00] VITALS: BP 106/60
[2019-05-02 06:21] LABS: PLATELET COUNT, AUTOMATED 191 10^3/uL (150-450); RED BLOOD COUNT 3.61 10^6/uL (4.00-5.40); WHITE BLOOD COUNT 10.8 10^3/uL (4.0-10.0)
[2019-05-02] MEDS: ACETAMINOPHEN TAB 650MG DOSE (2X325MG) PO PRN (06:22)
[2019-05-02 06:24] LABS: HEMOGLOBIN 11.2 g/dl (12.0-15.5)
[2019-05-02 06:53] LABS: BLOOD UREA NITROGEN 8 MG/DL (7-18); CALCIUM LEVEL 8.4 MG/DL (8.5-10.1); CARBON DIOXIDE LEVEL 27 MEQ/L (21-32); CHLORIDE LEVEL 108 MEQ/L (98-107); CREATININE FOR GFR 0.65 MG/DL (0.55-1.30); GLOMERULAR FILTRATION RATE > 60.0 (>58); GLUCOSE, FASTING 82 MG/DL (70-100); POTASSIUM SERUM 3.7 MEQ/L (3.5-5.1); SODIUM LEVEL 142 MEQ/L (136-145)
[2019-05-02] MEDS ORDERED: traMADol 50 MG TAB PO PRN ×2 (08:00)
--- NOTE | 2019-05-02 08:01 | IPNPDOC ---
Subjective Review oF Systems Chief Complaint The patient is a 43-year-old female admitted with a reason for visit of Renal Mass. Events since Last Encounter No acute events o/n. Patient notes RUQ abd pain, similar to pain she had prior to surgery. She notes that it is worse now and worse w/ movement. When she takes percocet for this, it triggers migraines, which she has chronically. She denies n/v. Got out of bed once. No f/c/ns. Objective Physical Examination General Exam: Alert, Cooperative ABDOMEN EXAM: Soft, Tenderness (moderate RUQ), Other (nondistended; incisions clean/dry/intact; DIAN w/ serosanguinous output) Neuro Exam: Normal Speech Psych Exam: Mental status NL, Mood NL Other physical findings catheter draining clear urine Vital Signs/I&O Vital Signs Date Time Temp Pulse Resp B/P (MAP) Pulse Ox O2 Delivery O2 Flow Rate FiO2 05/02/19 06:00 98.7 68 15 106/60 (75) 97 Room Air 05/01/19 12:10 2 I&O- Last 24 Hours up to 6 AM 05/02/19 06:00 Intake Total 3000 ml Output Total 2445 ml Balance 555 ml Laboratory Data Labs 24H Laboratory Tests 2 05/01/19 11:11: Nucleated Red Blood Cells % (auto) 0.0, Anion Gap 6L, Glomerular Filtration Rate > 60.0, Calcium Level 8.5 05/02/19 05:36: Nucleated Red Blood Cells % (auto) 0.0, Anion Gap 7L, Glomerular Filtration Rate > 60.0, Calcium Level 8.4L CBC/BMP Laboratory Tests 05/01/19 11:11 05/02/19 05:36 Assessment/Plan Date Seen The patient was seen on 05/02/19. Patient Summary This is a 43 y/o F POD1 s/p R robotic partial nephrectomy. Hb trended down to 11.2 from 14.7 postop. Vitals stable. Good UOP. Normal DIAN output. Cr 0.7. Plan/VTE VTE Prophylaxis Ordered?: Yes VTE Exclusion Mechanical Proph: N/A:VTE Prophy Ordered Plan/Urinary Catheter Urinary Catheter: D/C Mccabe Plan - d/c Mccabe - d/c IVF - strict I/Os - d/c percocet and start ultram prn pain - SCDs when in bed - ambulate - incentive spirometry - recheck Hb at noon - advance diet as tolerated ROSEMARY CAR MD May 02, 2019 08:01
[2019-05-02] MEDS: DOCUSATE SODIUM 100 MG CAP PO SCH (08:25)
[2019-05-02] MEDS: NICOTINE 14 MG/24 HR TRANSDERMAL TD SCH (08:25)
[2019-05-02 10:00] VITALS: BP 103/53
[2019-05-02 12:11] LABS: HEMATOCRIT 37.5 % (36.0-47.0); HEMOGLOBIN 12.2 g/dl (12.0-15.5)
[2019-05-02 14:00] VITALS: BP 109/62
[2019-05-02] MEDS ORDERED: DOCU100C16 PO (15:02)
[2019-05-02] MEDS ORDERED: TRAM50TA2 PO (15:02)
--- NOTE | 2019-05-02 15:25 | DSES ---
DATE OF ADMISSION: 05/01/2019 DATE OF DISCHARGE: 05/02/2019 ADMISSION DIAGNOSIS: Right renal neoplasm. DISCHARGE DIAGNOSIS: Right renal cell carcinoma. ADMITTING PHYSICIAN: Eugenio Lott MD DISCHARGING PHYSICIAN: Eugenio Lott MD PROCEDURES PERFORMED: Right robotic partial nephrectomy on 05/01/2019. HISTORY OF PRESENT ILLNESS: This is a 43-year-old female who was found to have an enhancing 4 cm right renal neoplasm. She was admitted to the hospital after undergoing the above listed procedure for treatment. HOSPITAL COURSE: The patient was admitted to the hospital after undergoing the above listed procedure. Her postoperative course was notable only for moderate amount of postoperative pain on postoperative day 1. As the day went by and her pain medications were changed up, specifically, Percocet was discontinued and Ultram was started, her pain was much better controlled. She is ambulating well without difficulty. Her catheter was removed and she voided without any difficulty. Her diet was advanced and she is tolerating a regular diet. Of note, her hemoglobin in the morning on postoperative day 1 dropped to 11.2 from 14.7 postop. Her hemoglobin level was therefore, rechecked at noon on postoperative day 1 and it went up to 12.2. All of her vital signs are stable. She had excellent urine output and minimal output from her Clint-Gill drain. She was therefore deemed ready for discharge home. Her Clint-Gill drain was removed and she was discharged home with the plan for her to followup in urology clinic in [facility] weeks for postoperative visit and to discuss her pathology results. edited: 05/03/2019 0714 tkf MTDD
== END 2019-05-02 16:31 | disposition home or self-care (01) | DRG 658 ==
LOC: M SDC 05:54 → EDSTATUS 07:30 → M MSPAV 13:50
PROVIDERS: ADMIT Urology; ATTEND Urology
PROC: 8E0W4CZ Robotic Assisted Procedure of Trunk Region, Percutaneous Endoscopic Approach (ICD-10-PCS; 2019-05-01)
PROC: 0TB04ZZ Excision of Right Kidney, Percutaneous Endoscopic Approach (ICD-10-PCS; principal; 2019-05-01 07:30)
DX: C64.1 Malignant neoplasm of right kidney, except renal pelvis (principal); Z79.899 Other long term (current) drug therapy; E11.9 Type 2 diabetes mellitus without complications; Z85.71 Personal history of Hodgkin lymphoma; M79.7 Fibromyalgia; E78.5 Hyperlipidemia, unspecified; F41.9 Anxiety disorder, unspecified; F32.9 Major depressive disorder, single episode, unspecified; F43.10 Post-traumatic stress disorder, unspecified; F17.200 Nicotine dependence, unspecified, uncomplicated; J30.9 Allergic rhinitis, unspecified; K21.9 Gastro-esophageal reflux disease without esophagitis; G43.909 Migraine, unspecified, not intractable, without status migrainosus; M50.30 Other cervical disc degeneration, unspecified cervical region; M51.37 Other intervertebral disc degeneration, lumbosacral region; M51.27 Other intervertebral disc displacement, lumbosacral region; Z90.79 Acquired absence of other genital organ(s); Z90.49 Acquired absence of other specified parts of digestive tract; H53.2 Diplopia; Z91.040 Latex allergy status; Z88.2 Allergy status to sulfonamides; Z88.3 Allergy status to other anti-infective agents; Z88.8 Allergy status to other drugs, medicaments and biological substances; Z91.013 Allergy to seafood; Z91.018 Allergy to other foods; Z91.5 Personal history of self-harm

== ENCOUNTER → 2019-05-15 | Outpatient (REF) | payer OTHER, MEDICAID ==
[~2019-05-15] MED LIST changes: +DOCU100C16 PO
[2019-05-15 13:20] LABS: HEMATOCRIT 43.7 % (36.0-47.0); HEMOGLOBIN 13.8 g/dl (12.0-15.5); MEAN CORPUSCULAR HEMOGLOBIN 30.9 pg (27.0-33.0); MEAN CORPUSCULAR HGB CONC 31.6 g/dl (32.0-36.5); PLATELET COUNT, AUTOMATED 457 10^3/uL (150-450); RED BLOOD COUNT 4.46 10^6/uL (4.00-5.40); WHITE BLOOD COUNT 9.4 10^3/uL (4.0-10.0)
[2019-05-15 13:44] LABS: BLOOD UREA NITROGEN 11 MG/DL (7-18); CALCIUM LEVEL 9.1 MG/DL (8.5-10.1); CARBON DIOXIDE LEVEL 29 MEQ/L (21-32); CHLORIDE LEVEL 103 MEQ/L (98-107); CREATININE FOR GFR 0.59 MG/DL (0.55-1.30); GLOMERULAR FILTRATION RATE > 60.0 (>58); GLUCOSE, FASTING 88 MG/DL (70-100); POTASSIUM SERUM 4.3 MEQ/L (3.5-5.1); SODIUM LEVEL 138 MEQ/L (136-145)
== END ==
LOC: M LABSMT 11:22 → M SFHCADAM 11:22
PROVIDERS: ATTEND Urology
DX: C64.1 Malignant neoplasm of right kidney, except renal pelvis (principal)

== ENCOUNTER → 2019-05-31 | Outpatient (REF) | payer OTHER, MEDICAID ==
[2019-05-31 13:03] LABS: APPEARANCE, URINE CLOUDY (CLEAR); BACTERIA, URINE AUTO NEGATIVE (NEGATIVE); BILIRUBIN, URINE AUTO NEGATIVE (NEGATIVE); BLOOD, URINE BLOOD NEGATIVE (NEGATIVE); COLOR, URINE YELLOW (YELLOW); GLUCOSE, URINE (UA) AUTO NEGATIVE (NEGATIVE); KETONE, URINE AUTO NEGATIVE (NEGATIVE); LEUKOCYTE ESTERASE, URINE AUTO NEGATIVE (NEGATIVE); MUCUS, URINE SMALL (NEGATIVE); NITRITE, URINE AUTO NEGATIVE (NEGATIVE); PROTEIN, URINE AUTO NEGATIVE (NEGATIVE); RBC, URINE AUTO 5 /HPF (0-3); SPECIFIC GRAVITY URINE AUTO 1.012 (1.002-1.035); SQUAMOUS EPITHELIAL CELL UR AU 2 /HPF (0-6); UROBILINOGEN, URINE AUTO 0.2 mg/dL (0.0-2.0); WBC, URINE AUTO 1 /HPF (0-3)
== END ==
LOC: M LABSMT 10:53 → M SFHCADAM 10:54
PROVIDERS: ATTEND Urology
DX: N39.0 Urinary tract infection, site not specified (principal)

== ENCOUNTER → 2019-07-03 | Outpatient (REF) | payer OTHER, MEDICAID ==
[~2019-07-03] MED LIST changes: +GABA-282; -GABA-843
== END ==
LOC: M SFHCADAM 11:16
PROVIDERS: ATTEND Family Medicine
DX: N30.90 Cystitis, unspecified without hematuria (principal)
CPT/HCPCS: 87088; 87186; G0463

== ENCOUNTER → 2019-07-16 | Outpatient (CLI) | payer OTHER, MEDICAID ==
[~2019-07-16] MED LIST changes: -GABA-282; +GABA-843
--- NOTE | 2019-07-18 01:23 | ECWPNPC ---
PATIENT NAME: ALBERTO HUNT : 1975 GENDER: FEMALE VISIT DATE: 07/16/2019 DISCHARGE DATE: 07/16/19 1426 VISIT LOCKED DATE TIME: PHYSICIAN: DINO MEJIA PHYSICIAN PAGER NO: [phone] RESOURCE: DINO MEJIA REASON FOR APPOINTMENT 1. COMPLEX REGIONAL PAIN SYNDROM/ ? NERVE BLOCKS HISTORY OF PRESENT ILLNESS GENERAL: - 43-YEAR-OLD FEMALE IN FOR NEW PATIENT CONSULT. PATIENT PRESENTS WITH COMPLAINTS OF COMPLEX REGIONAL PAIN SYNDROME. SHE IS BEING SEEN BY [facility] FOR NERVE BLOCKS AND WAS RECENTLY REFERRED TO THE PAIN CENTER BY DR. REAGAN. SHE ADMITS TO A HISTORY OF FOOT DROP AND WEAKNESS RELATED TO STROKE. SHE HAS STARTED PHYSICAL THERAPY APPROXIMATELY 2 WEEKS AGO TO HELP WITH THIS. WHEN ASKED PATIENT ADMITS THAT SHE HAS BEEN ON TRAMADOL IN THE PAST AND THAT THIS MEDICATION IS THE ONLY MEDICATION THEY HAVE FOUND IT DOES NOT TRIGGER HER MIGRAINES. SHE DESCRIBES HER PAIN CURRENTLY SHOOTING AND RATES IT AT A 4 OUT OF 10. FALL RISK SCREENING: SCREENING :ONE FALL WITHOUT INJURY IN THE PAST YEAR PAIN SCREENING: PATIENT HAS A COMPLAINT OF ACUTE OR CHRONIC PAIN :YES LOCATION OF PAIN:LOW BACK, LEG(S) LEFT LEG BEEN WORSE INTENSITY OF PAIN (SCALE OF 1 TO 10):4 WHAT DOES YOUR PAIN FEEL LIKE:ACHING, SHARP, STABBING, THROBBING DURATION:CONTINOUS, CONSTANT, STEADY, ALL DAY, MAINLY DURING THE NIGHT PAIN IS INCREASED BY:ACTIVITIES PAIN HAS INTERFERED WITH THE FOLLOWING:MOOD, WALKING ABILITY, HOUSEWORK, RELATIONSHIP WITH OTHERS, ENJOYMENT OF LIFE PLAN/GOALS/TREATMENT/INTERVENTION/FOLLOW UP:SEE PLAN NURSING NOTE: - -. PAIN CENTER INTAKE QUESTIONS: DO YOU HAVE A HISTORY OF MRSA? :NO DO YOU TAKE A BLOOD THINNERS? :NO DO YOU HAVE ANY BLEEDING DISORDERS? :NO ANY NEW NUMBNESS OR WEAKNESS IN YOUR LEGS OR ARMS? :NO ANY PACEMAKER,DEFIBRILLATOR, OR DORSAL COLUMN STIMULATOR? :NO DO YOU HAVE ANY RASHES OR OPEN SORES? :NO ARE YOU ALLERGIC TO IV DYE? :NO ARE YOU DIABETIC? :NO ANY NEW PROBLEMS WITH YOUR MEDICATIONS? :NO HAVE YOU RECEIVED A VACCINE IN THE PAST 30 DAYS? :NO DO YOU PLAN TO RECEIVE A VACCINE IN THE NEXT 21 DAYS? :NO DO YOU NEED ANY PRESCRIPTION? :NO DO YOU TAKE ANY IMMUNOSUPPRESSIVE MEDICATIONS? :NO CURRENT MEDICATIONS TAKING POTASSIUM TAKING ZOFRAN ODT 8 MG TABLET DISINTEGRATING DIRECTED ORALLY Q 6 HRS PRN NAUSEA. ALTERNATE WITH PHENERGAN, NOTES: SHE HAS USED FREQUNTLY LATELY TAKING EXCEDRIN TENSION HEADACHE 500-65 MG TABLET ORALLY 2-3 TIMES A DAY NEEDED TAKING VITAMIN D3 2000 UNIT CAPSULE 1 CAPSULE ORALLY ONCE A DAY TAKING TYLENOL EXTRA STRENGTH 500 MG TABLET 2 TABLET NEEDED ORALLY EVERY 6 HRS TAKING MAGNESIUM 500 MG TABLET 1-2 TABLET WITH A MEAL ORALLY DAILY TAKING VITAMIN B 12 TAKING ASTEPRO 0.15 % SOLUTION 1 SPRAY IN EACH NOSTRIL NASALLY TWICE A DAY, NOTES: PRN TAKING EPIPEN 2-LAWANDA 0.3 MG/0.3ML SOLUTION AUTO-INJECTOR DIRECTED INJECTION DIRECTED TAKING LOTRIMIN ULTRA 1 % CREAM 1 APPLICATION TO AFFECTED AREA EXTERNALLY TWICE A DAY TAKING LEVOCETIRIZINE DIHYDROCHLORIDE 5 MG TABLET TAKE ONE TABLET BY MOUTH EVERY EVENING TAKING FIORICET 50-300-40 MG CAPSULE 1 CAPSULE NEEDED ORALLY EVERY 4 HRS TAKING [id number] COMPLEX - TABLET DIRECTED ORALLY TAKING CAPSAICIN 0.1 % CREAM 1 APPLICATION NEEDED EXTERNALLY THREE TIMES A DAY TAKING PYRIDIUM 200 MG TABLET 1 TABLET AFTER MEALS ORALLY THREE TIMES A DAY NEEDED TAKING FLUCONAZOLE 150 MG TABLET 1 TABLET ORALLY 1 TAKING MACROBID 100 MG CAPSULE 1 CAP ORALLY BID NOT-TAKING CHANTIX STARTING MONTH LAWANDA 0.5 MG X 11 & 1 MG X 42 TABLET 1 TAB ORALLY DIRECTED NOT-TAKING CHANTIX 1 MG TABLET 1 TAB ORALLY BID NOT-TAKING NICOTINE 21 MG/24HR PATCH 24 HOUR 1 PATCH TO SKIN TRANSDERMAL ONCE A DAY NOT-TAKING MULTIVITAMIN WOMEN - TABLET ORALLY NOT-TAKING GABAPENTIN 100 MG CAPSULE 1 CAPSULE ORALLY TWICE A DAY NOT-TAKING MAY HAVE OTC NICOTINE PATCH NOT-TAKING [id number] 50-325-40 MG CAPSULE 1 CAPSULE NEEDED ORALLY EVERY 6 HRS NEEDED FOR MIGRAINE MEDICATION LIST REVIEWED AND RECONCILED WITH THE PATIENT PAST MEDICAL HISTORY 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 MARAVILLA); PT DECLINED SURGICAL INTERVENTION,ULTIMATELY UNDERWENT PARTIAL RESECTION RT BRAINSTEM HEMAINGIOMA 04/23 JACQUELIN. 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 IN REMISSION - PREVIOUSLY FOLLOWED WITH DR. MARIA FIBROMYALGIA - PAIN CLINIC HYPERLIPIDEMIA--9 YR ASCVD RISK 4% (2) HISTORY OF PSYCHIATRIC DISORDER AND WAS TAKING MEDICATIONS PRESCRIBED BY DR. HYDE. HOWEVER STOPPED TAKING EVERYTHING AFTER SHE HAD UNEXPLAINED SYNCOPE. ANXIETY/DEPRESSION/PTSD - FOLLOWED BY BEHAVIORAL HEALTH FOLLOWING WITH THERAPIST - SHE WAS DISCHARGED FROM BEHAVIORAL HEALTH FOR CANCELLATION OF APPOINTMENTS. CT CHEST 04/2014 - LUNG NODULE - F/U CT 03/2015 - NODULE RESOLVED. CHRONIC CONSTIPATION - FOLLWED BY DR. 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 COMPLEX REGIONAL PAIN SYNDROME LLE (SEE 06/25) ALLERGIES IODINE: ANAPHYLAXIS - ALLERGY SULFA (FOR ALLERGY USE ONLY): DIARRHEA,VOMITTING,HIVES - SIDE EFFECTS BUSPAR: MEMORY LOSS - ALLERGY LITHIUM CARBONATE: NAUSEA/VOMITING, DEHYRATION - ALLERGY MEDROXYPROGESTERONE ACETATE: HIVES - ALLERGY IBUPROFEN: NAUSEA/VOMITING,DIARRHEA - SIDE EFFECTS LYRICA: SWELLING OF FEET AND HANDS - SIDE EFFECTS FLEXERIL: INCREASED HEART RATE - SIDE EFFECTS BEE STINGS: ANAPHYLAXIS - ALLERGY LATEX (FOR ALLERGY USE ONLY): HIVES - ALLERGY PEANUTS: ANAPHYLAXIS - CONTRAINDICATION NO BLOOD THINNERS: CONTRAINDICATION CHANTIX: AUDITORY HALLUCINATIONS - SIDE EFFECTS EXCEDRIN MIGRAINE: POSSIBLE BLEEDING - SIDE EFFECTS REMERON: MEMORY LOSS - SIDE EFFECTS BLOOD THINNERS/ASPIRIN: HEMANGIOMA BRAIN - CONTRAINDICATION CATS: CONGESTION/WHEEZING - ALLERGY ATORVASTATIN: HYPERGLYCEMIA - SIDE EFFECTS TRIPTANS : WORSENING HEADACHES - SIDE EFFECTS SEAFOOD: ANAPHYLAXIS - ALLERGY TREE NUTS: ANAPHYLAXIS - ALLERGY PEARS: HIVES/RASH - ALLERGY DEMEROL: HIVES - ALLERGY SURGICAL HISTORY HYSTERECETOMY- PARTIAL OOVERECTOMY APPENDECTOMY BIOPSY- 2013 EGD - HH, COLONOSCOPY - POOR PREP WITH RETAINED STOOL - (CYRUS) 2011 JACQUELIN RT TEMPORAL CRANIOTOMY 04/23 2 C-SETIONS BONE MARROW BIOPSIES RIGHT PARTIAL NEPHRECTOMY, PAPILLARY CELL CARCINOMA 04/25 FAMILY HISTORY FATHER: MOTHER: 2 BROTHER(S) , 2 SISTER(S) . 1 SON(S) , 1 DAUGHTER(S) . UNKNOWNDENIES FAMILY HX OF MELANOMA AND PANCREATIC CANCER. SOCIAL HISTORY GENERAL: TOBACCO USE ARE YOU A:CURRENT SMOKER ARE YOU INTERESTED IN QUITTING?THINKING ABOUT QUITTING COUNSELED THE PATIENT ON SMOKING CESSATION, EDUCATION [id number]/2020 HOW MANY CIGARETTES A DAY DO YOU SMOKE?5 OR LESS HOW SOON AFTER YOU WAKE UP DO YOU SMOKE YOUR FIRST CIGARETTE?WITHIN 5 MIN HOW OFTEN DO YOU SMOKE CIGARETTES?EVERY DAY PATIENT COUNSELED ON THE DANGERS OF TOBACCO USE AND URGED TO QUIT:07/16/2019 SMOKING CESSATION INFORMATION GIVEN07/16/2019 LATEX QUESTIONNAIRE LATEX ALLERGY : HAVE YOU EVER DEVELOPED ANY TYPE OF REACTION AFTER HANDLING LATEX PRODUCTS SUCH RUBBER GLOVES, CONDOMS, DIAPHRAGMS, BALLOONS, SOCKS, OR UNDERWEAR?YES - PLEASE INDICATE :RUBBER GLOVES, DIAPHRAGMS HIVES LATEX ALLERGY : HAVE YOU EVER DEVELOPED ANY TYPE OF REACTION DURING OR AFTER DENTAL APPOINTMENT, VAGINAL/RECTAL EXAMINATION, SURGICAL PROCEDURE, OR ANY OTHER EXPOSURE?YES - PLEASE INDICATE :VAGINAL EXAM LATEX RISK : HAVE YOU EVER HAD ANY DIFFICULTY BREATHING OR HIVES AFTER EATING OR HANDLING ANY FRUITS, OR VEGETABLES; SUCH KIWI, BANANAS, STONE FRUITS, OR CHESTNUTSNO LATEX RISK : DO YOU HAVE A PREVIOUS PERSONAL HISTORY OF MORE THAN NINE SURGERIES, SPINA BIFIDA, OR REPEATED CATHERIZATIONS? YES - PLEASE INDICATE : > 9 SURGERIES LATEX RISK : ARE YOU FREQUENTLY EXPOSED TO LATEX PRODUCTS IN YOUR OCCUPATION?NO DATE ASKED : 07/16/2019 LUNG CANCER SCREENING SMOKING STATUS:CURRENT SMOKER ALCOHOL SCREENING DID YOU HAVE A DRINK CONTAINING ALCOHOL IN THE PAST YEAR?YES HOW OFTEN DID YOU HAVE SIX OR MORE DRINKS ON ONE OCCASION IN THE PAST YEAR?LESS THAN MONTHLY (1 POINT) HOW MANY DRINKS DID YOU HAVE ON A TYPICAL DAY WHEN YOU WERE DRINKING IN THE PAST YEAR?1 OR 2 (0 POINTS) HOW OFTEN DID YOU HAVE A DRINK CONTAINING ALCOHOL IN THE PAST YEAR?MONTHLY OR LESS (1 POINT) POINTS2 INTERPRETATIONNEGATIVE RECREATIONAL DRUG USE DENIES. CAFFEINE 1 CUP EVERY 2-3 DAYS. SEXUAL HX HAD SEX IN THE LAST 12 MONTHS (VAGINAL, ORAL, OR ANAL)?YES WITHMEN ONLY USE PROTECTION?YES HOW OFTEN?MOST OF THE TIME LMP:2005 HAVE YOU EVER HAD AN STD?YES OTHER?NO CHLAMYDIA?YES BAPTISM NO YAZIDI BELIEFS THAT WOULD IMPACT HEALTH CARE. LANGUAGE MONGOLIAN. 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 DIET: LOW CARBS,. EXERCISE: NONE. MARITAL STATUS: -NOT LIVING TOGETHER. OTHERS AT HOME: BROTHER IN LAW. MALE 6 MONTH RISK ASSESSMENT FOR STD DESCRIBE YOUR SEXUAL PARTNERS:MEN PAIN CLINIC PFS, CLERGY, PUBLIC HEALTH REFERRALS PFS REFERRAL NEEDED?NO CLERGY REFERRAL NEEDED?NO PUBLIC HEALTH REFERRAL NEEDED?NO WAS THE PROVIDER NOTIFIED OF ANY PERTINENT INFO?YES HAS THE PATIENT BEEN EDUCATED REGARDING HIS/HER PLAN OF CARE?YES HAS THE PATIENT BEEN EDUCATED REGARDING PAIN, THE RISK FOR PAIN, THE IMPORTANCE OF EFFECTIVE PAIN MANAGEMENT, AND THE PAIN ASSESSMENT PROCESS?YES HOUSING: [facility]. HOSPITALIZATION/MAJOR DIAGNOSTIC PROCEDURE MULTIPLE SUICIDAL ATTEMPTS TEENAGER SYNCOPE 2 YRS AGO ([facility]) APPENDICITIS URINARY TRACT INFECTION,HEADACHE 02/2017 BRAIN SURGERY 04/14/17 PARTIAL RT NEPHRECTOMY [facility]/JOSEP 04/25 REVIEW OF SYSTEMS CONSTITUTIONAL: ANY RECENT FEVER OR ILLNESS NO . ANY CHANGE IN YOUR MEDICAL CONDITION? NO . CHILLS NO . MUSCULOSKELETAL: ANY NEW PATTERNS OF PAIN OR NUMBNESS? NO . LYME DISEASE NO . GASTROENTEROLOGY: ANY NEW CHANGE IN BOWEL CONTROL? NO . BARRETTS ESOPHAGUS NO . CIRRHOSIS NO . HEPATITIS NO . LIVER FAILURE NO . NO ABDOMINAL PAIN. ACID REFLUX NO . NO ANOREXIA. NO CONSTIPATION. NO CRAMPING. NO NAUSEA. NO RECTAL BLEEDING. NO VOMITING. UNEXPLAINED WEIGHT LOSS NO . GENITOURINARY: ANY NEW CHANGE IN BLADDER CONTROL? NO . IS THERE A CHANCE YOU COULD BE ? NO . NEUROLOGY: HEAD INJURY NO . NEW ONSET DIZZINESS NO . HEADACHE NO . STROKES NO . VERTIGO NO . CARDIOLOGY: ANGINA NO . HEART ATTACK NO . HEART SURGERY NO . CONGESTIVE HEART FAILURE/FLUID OVERLOAD NO . CHEST PAIN NO . HIGH BLOOD PRESSURE NO . IRREGULAR HEART BEAT NO . RESPIRATORY: SLEEP APNEA NO . ASTHMA NO . SHORTNESS OF BREATH ON EXERTION NO . COUGH NO . WHEEZING NO . ENDOCRINOLOGY: ADRENAL GLAND DISORDER NO . THYROID DISORDER NO . VITAL SIGNS WT 126 LBS, HT 60 IN, BMI 24.61 INDEX, BP 114/57 MM HG, HR 65 /MIN, RR 16 /MIN, TEMP 98.5 F, OXYGEN SAT % 100%, SAFE IN ENV? (Y/N) YES, NA INITIALS SC 13:15NANA ASUMADU FUR SEWER. EXAMINATION GENERAL EXAMINATION: GENERALNO ACUTE DISTRESS, WELL NOURISHED AND HYDRATED. PSYCHAPPROPRIATE MOOD AND AFFECT . LUNGS:CLEAR TO AUSCULTATION BILATERALLY, NO WHEEZES, RHONCHI, RALES. HEART:NO MURMURS, REGULAR RATE AND RHYTHM. ASSESSMENTS COMPLEX REGIONAL PAIN SYNDROME TYPE 1 OF RIGHT LOWER EXTREMITY - G90.521 (PRIMARY) TREATMENT COMPLEX REGIONAL PAIN SYNDROME TYPE 1 OF RIGHT LOWER EXTREMITY START TRAMADOL HCL TABLET, 50 MG, 1 TABLET NEEDED, ORALLY, TWICE DAILY PRN PAIN, 30 DAYS, 60 START GABAPENTIN CAPSULE, 100 MG, 1 CAPSULE, ORALLY, THREE TIMES DAILY, 3 DAYS, 9 START GABAPENTIN CAPSULE, 300 MG, 1 CAPSULE, ORALLY, THREE TIMES DAILY START DAY 4, 30 DAY(S), 90 CLINICAL NOTES: 43-YEAR-OLD FEMALE IN FOR CHRONIC PAIN FOLLOW-UP. GIVEN PRESENTING SYMPTOMS RECOMMENDED TRAMADOL 50 MG TWICE A DAY, AND GABAPENTIN WITH FOLLOW-UP IN ONE MONTH TO DETERMINE EFFICACY TREATMENT. PATIENT HAS EXPRESSED UNDERSTANDING OF AND WAS IN AGREEMENT WITH TREATMENT PLAN. GIVEN TIME TO ASK QUESTIONS AND EXPRESS CONCERNS. , [employer] REGISTRY REVIEWED AND DEMONSTRATES COMPLLIANCE. (REF # [id number] ). PROCEDURE CODES FA211 ESTABILISHED PATIENT [facility] CHARGE DISPOSITION & COMMUNICATION FOLLOW UP 4 WEEKS (REASON: CRPS) ELECTRONICALLY SIGNED BY WENDI MORENO ON 07/17/2019 AT 02:20 PM EDT DISCLAIMER : THIS IS A VISIT SUMMARY EXTRACTED FROM THE [employer] CHART. IT IS NOT A COPY OF THE [employer] PROGRESS NOTE. MTDD
== END ==
LOC: M PAIN 13:30
PROVIDERS: ATTEND Family Medicine
DX: G90.521 Complex regional pain syndrome I of right lower limb (principal)

== ENCOUNTER → 2019-07-25 | Outpatient (REF) | payer OTHER, MEDICAID ==
[2019-07-25 18:55] LABS: AMORPHOUS SEDIMENT SMALL (NEGATIVE); APPEARANCE, URINE HAZY (CLEAR); BACTERIA, URINE AUTO NEGATIVE (NEGATIVE); BILIRUBIN, URINE AUTO NEGATIVE (NEGATIVE); BLOOD, URINE BLOOD 2+ (NEGATIVE); COLOR, URINE YELLOW (YELLOW); GLUCOSE, URINE (UA) AUTO NEGATIVE (NEGATIVE); KETONE, URINE AUTO NEGATIVE (NEGATIVE); LEUKOCYTE ESTERASE, URINE AUTO NEGATIVE (NEGATIVE); MUCUS, URINE SMALL (NEGATIVE); NITRITE, URINE AUTO POSITIVE (NEGATIVE); PROTEIN, URINE AUTO NEGATIVE (NEGATIVE); RBC, URINE AUTO 3 /HPF (0-3); SPECIFIC GRAVITY URINE AUTO 1.014 (1.002-1.035); SQUAMOUS EPITHELIAL CELL UR AU 7 /HPF (0-6); UROBILINOGEN, URINE AUTO 0.2 mg/dL (0.0-2.0); WBC, URINE AUTO 2 /HPF (0-3)
== END ==
LOC: M SFHCADAM 15:17
PROVIDERS: ATTEND Family Medicine
DX: N39.0 Urinary tract infection, site not specified (principal)
CPT/HCPCS: 81001; 87088; 87186; G0463

== ENCOUNTER → 2019-08-06 | Outpatient (REF) | payer OTHER ==
[2019-08-06 17:29] LABS: AMORPHOUS SEDIMENT MODERATE (NEGATIVE); APPEARANCE, URINE CLOUDY (CLEAR); BACTERIA, URINE AUTO NEGATIVE (NEGATIVE); BILIRUBIN, URINE AUTO NEGATIVE (NEGATIVE); BLOOD, URINE BLOOD NEGATIVE (NEGATIVE); COLOR, URINE YELLOW (YELLOW); GLUCOSE, URINE (UA) AUTO NEGATIVE (NEGATIVE); KETONE, URINE AUTO NEGATIVE (NEGATIVE); LEUKOCYTE ESTERASE, URINE AUTO NEGATIVE (NEGATIVE); MUCUS, URINE SMALL (NEGATIVE); NITRITE, URINE AUTO NEGATIVE (NEGATIVE); PROTEIN, URINE AUTO NEGATIVE (NEGATIVE); RBC, URINE AUTO 9 /HPF (0-3); SPECIFIC GRAVITY URINE AUTO 1.017 (1.002-1.035); SQUAMOUS EPITHELIAL CELL UR AU 2 /HPF (0-6); UROBILINOGEN, URINE AUTO 0.2 mg/dL (0.0-2.0); WBC, URINE AUTO 0 /HPF (0-3)
== END ==
LOC: M SMT 16:29
PROVIDERS: ATTEND Nurse Practitioner Women's Health
DX: N39.0 Urinary tract infection, site not specified (principal)
CPT/HCPCS: 51798; 81001; 87086; G0463

== ENCOUNTER → 2019-09-10 | Outpatient (REF) | payer OTHER, MEDICAID ==
[2019-11-26 11:48] LABS: GLUCOSE, FASTING SEE SEPARATE REPORT
== END ==
LOC: M SFHCADAM 11:26
PROVIDERS: ATTEND Family Medicine
DX: G90.521 Complex regional pain syndrome I of right lower limb (principal)
CPT/HCPCS: 36415; 80048; G0463